=== PATIENT | male | born 1955 | race Caucasian/White ===

== ENCOUNTER 2018-12-07 13:41 | Day surgery (SDC) | payer OTHER, SELFPAY ==
--- NOTE | 2018-12-07 | PATH_ITS ---
[facility] Accession Number: [id number] . 01 Material submitted: . colon - COLON POLYP AT 20 CM . 02 Diagnosis: Biopsy, Colon Polyp at 20 cm: Single polypoid-shaped fragment of colon mucosa associated with prominent mucosal lymphoid aggregate. MRV/12/10/2018 . 02 Electronically signed: . Дмитрий Allen MD, Pathologist NPI- [id number] . 01 Gross description: . COLON POLYP AT 20 CM: Received in formalin are 2 fragment(s) of byers, soft tissue measuring 0.1 x 0.1 x 0.1 cm to 0.4 x 0.2 x 0.2 cm which is entirely submitted and submitted entirely in 1 cassette(s) /DMC /DM . 02 Pathologist provided ICD-10: K63.5 . 02 CPT . 090288 Performed at: 01 [facility] [address] [facility], [place], [place] [id number] MD Benny Peraza MD Phone: [phone] Performed at: 02 [facility] [address] [place], [place] [id number] MD Jazmin Parmar MD Phone: [phone]
[2018-12-07] MEDS: SODIUM CHLORIDE 0.9% 1,000 ML 200 ML IV (13:55)
[2018-12-07 13:58] VITALS: BMI 27.8
[2018-12-07 14:03] VITALS: BP 145/84; PULSE 94; RESP 16; TEMP 36.2; O2SAT 99
--- NOTE | 2018-12-07 14:37 | PM.HP.1 ---
History of Present Illness Date Patient Seen: 12/07/18 Time Patient Seen: 14:41 Chief complaint: [id number] SCREENING COLONOSCOPY Narrative: Patient has history of 1 colonoscopy in the past he thinks he may have had a polyp that was 10 years ago. He is asymptomatic. Patient History Social History household members: spouse Family & Social History Social History: household members spouse Meds Home Medications Medication Instructions Recorded Confirmed Type CA/CU/VIT A/VIT C/VIT E/ZINC 1 tab PO QDAY #0 01/24/13 12/07/18 History (ICAPS AREDS~) carbamazepine 200 mg PO TID 12/07/18 12/07/18 History wxdllvfx-SJY-nmbch-hyaluron ac 1,500 mg PO DAILY 12/07/18 12/07/18 History lisinopril 20 mg PO DAILY 12/07/18 12/07/18 History Allergies Allergy/AdvReac Type Severity Reaction Status Date / Time No Known Allergies Allergy Verified 12/07/18 14:17 Review of Systems Review of Systems All systems reviewed & are unremarkable except as noted in HPI and below Exam Vital Signs (past 8 hours): - 12/07/18 14:03 Temperature 97.1 F L Pulse Rate 94 H Respiratory Rate 16 Blood Pressure 145/84 H Pulse Oximetry 99 Oxygen Delivery Method Room Air Narrative Exam Narrative: Patient is alert and oriented has no complaints vital signs are stable Lungs are clear with no rales or wheezes Heart regular rhythm no murmur Abdomen soft no organomegaly or tenderness Rectal be done at time of colonoscopy Assessment & Plan Assessment & Plan narrative: Patient is here for screening colonoscopy has no questions they went on answered he has had prior colonoscopy and understands
--- NOTE | 2018-12-07 14:42 | P.HP_ITS ---
History of Present Illness Date Patient Seen: 12/07/18 Time Patient Seen: 14:41 Chief complaint: [id number] SCREENING COLONOSCOPY Narrative: Patient has history of 1 colonoscopy in the past he thinks he may have had a polyp that was 10 years ago. He is asymptomatic. Patient History Social History household members: spouse Family & Social History Social History: household members spouse Meds Home Medications Medication Instructions Recorded Confirmed Type CA/CU/VIT A/VIT C/VIT E/ZINC 1 tab PO QDAY #0 01/24/13 12/07/18 History (ICAPS AREDS~) carbamazepine 200 mg PO TID 12/07/18 12/07/18 History ygmixajb-SEK-mfdow-hyaluron ac 1,500 mg PO DAILY 12/07/18 12/07/18 History lisinopril 20 mg PO DAILY 12/07/18 12/07/18 History Allergies Allergy/AdvReac Type Severity Reaction Status Date / Time No Known Allergies Allergy Verified 12/07/18 14:17 Review of Systems Review of Systems All systems reviewed & are unremarkable except as noted in HPI and below Exam Vital Signs (past 8 hours): - 12/07/18 14:03 Temperature 97.1 F L Pulse Rate 94 H Respiratory Rate 16 Blood Pressure 145/84 H Pulse Oximetry 99 Oxygen Delivery Method Room Air Narrative Exam Narrative: Patient is alert and oriented has no complaints vital signs are stable Lungs are clear with no rales or wheezes Heart regular rhythm no murmur Abdomen soft no organomegaly or tenderness Rectal be done at time of colonoscopy Assessment & Plan Assessment & Plan narrative: Patient is here for screening colonoscopy has no questions they went on answered he has had prior colonoscopy and understands
--- NOTE | 2018-12-07 15:15 | PM.OP.ENDO ---
Operative Date/Time/Diagnoses Date of procedure: 12/07/18 Time of procedure: 15:15 Pre-op diagnosis: Screening colonoscopy Post-op diagnosis: other (Very difficult colonoscopy discovered 1 polyp at 20 cm this was removed I could not advance the scope beyond 70 cm just beyond the splenic flexure) Procedure & Clinicians Study performed: Colonoscopy to 70 cm just beyond splenic flexure with polypectomy at 20 cm Same procedure as scheduled: No (Incomplete colonoscopy with polypectomy at 20 cm) Indications: Screening Surgeon: Dave Austin Procedure Notes SCOAP/Timeout: Was done Procedure in detail: Patient was properly identified during surgical pause he was given a total of 7 mg of Versed and 250 micro g of fentanyl throughout the procedure which was aborted at 70 cm. The flexible fiberoptic colonoscope inserted transanally to 70 cm where I simply could not advance the scope without causing undue discomfort. We repositioned the patient several times on his back and on his side none of which aided in advancing the scope beyond 70 cm. Patient had a flat polyp at 20 cm which I did remove and sent for histology. Patient was given copious sedation and the procedure was tolerated satisfactorily. Scope withdrawal time: 10 Sedation minutes: 26 Findings: polyp Impression: Very difficult colonoscopy which was aborted at 70 cm because of excessive required sedation. Future colonoscopy should be done with general anesthesia using propofol. I did remove a polyp at 20 cm if evaluation is warranted at this time barium enema could be considered to look at the right colon. Then if there is suspicion enough a colonoscopy under general anesthesia could be entertained at this time. Recommendations: Colonscopy in 3 years Disposition: PACU
[2018-12-07 15:16] VITALS: BP 121/81; PULSE 82; RESP 18; TEMP 36.4; O2SAT 95
[2018-12-07] MEDS: MIDAZOLAM 5 MG/5 ML VIAL IV (15:17)
[2018-12-07] MEDS: fentaNYL 250 MCG/5 ML INJ IV (15:17)
[2018-12-07 15:21] VITALS: BP 124/87; PULSE 82; RESP 13; O2SAT 96
[2018-12-07 15:26] VITALS: BP 111/73; PULSE 74; RESP 16; O2SAT 96
[2018-12-07 15:50] VITALS: BP 110/71; PULSE 79; RESP 16; O2SAT 96
== END 2018-12-07 15:50 | disposition home or self-care (01) ==
PROVIDERS: PCP Internal Medicine; Visit Provider Surgery
PROC: 0DJD8ZZ Inspection of Lower Intestinal Tract, Via Natural or Artificial Opening Endoscopic (ICD-10-PCS; CPT 45378; principal; 2018-12-07 15:15)
DX: Z12.11 Encounter for screening for malignant neoplasm of colon (principal); K63.5 Polyp of colon
CPT/HCPCS: 45380; 99152; J2250; J3010

== ENCOUNTER → 2019-09-10 17:14 | Outpatient (CLI) | payer OTHER, SELFPAY ==
--- NOTE | 2019-09-10 | DI.RAD.S_ITS ---
PROCEDURE: XR THORACIC SPINE 3V INDICATIONS: MID UPPER BACK, PAIN SINCE LAST SUMMER TECHNIQUE: 3 views of the thoracic spine were acquired. COMPARISON: None. FINDINGS: Bones: No acute fracture. Multilevel degenerative endplate sclerosis and spurring. Diffuse facet arthropathy. Soft tissues: No paravertebral stripe thickening. IMPRESSION: Diffuse spondylitic changes. No fracture Dictated by: Kory Correia M.D. on 09/11/2019 at 12:20 Approved by: Kory Correia M.D. on 09/11/2019 at 12:22
== END ==
PROVIDERS: PCP Internal Medicine; Referring Provider Physician Assistant Medical; Visit Provider Physician Assistant Medical
DX: M54.6 Pain in thoracic spine (principal); M47.814 Spondylosis without myelopathy or radiculopathy, thoracic region
CPT/HCPCS: 72072

== ENCOUNTER → 2019-10-21 16:53 | Outpatient (CLI) | payer OTHER, SELFPAY ==
--- NOTE | 2019-10-21 | DI.US.S_ITS ---
PROCEDURE: US SOFT TISSUE HEAD AND NECK INDICATIONS: CERVICAL LYMPHADENOPATHY TECHNIQUE: Real-time scanning was performed of the neck region of interest, with image documentation. COMPARISON: [facility], , MR THORACIC SPINE WO CON, 10/21/2019, 17:01. [facility], [place], PET/CT SKULL BASE TO MID THIGH, 10/21/2016, 9:08. FINDINGS: The disc height clinical concern, there is a 1.6 x 1.2 x 1.7 cm hypoechoic nodule seen, which demonstrates increased vascularity and irregularity. IMPRESSION: There is a hypervascular mass seen at the area of clinical concern. Given the patient's prior history of melanoma and the accompanying thoracic MRI findings, this is highly worrisome for metastatic disease, most likely representing an enlarged, pathologic lymph node. If clinically appropriate, these consider a dedicated ultrasound guided percutaneous biopsy. Dictated by: Eagle Lui M.D. on 10/21/2019 at 17:00 Approved by: Eagle Lui M.D. on 10/21/2019 at 17:02
--- NOTE | 2019-10-21 | DI.MRI.S_ITS ---
PROCEDURE: MR THORACIC SPINE WO CON INDICATIONS: Pain in thoracic spine; Cervical Lymphadenopathy TECHNIQUE: Noncontrast sagittal T1 spine echo and T2 fast spin echo, sagittal STIR, axial T1 and T2 fast spin echo through the thoracic spine. COMPARISON: [facility], , XR THORACIC SPINE 3V, 09/10/2019, 17:29. [facility], [place], PET/CT SKULL BASE TO MID THIGH, 10/21/2016, 9:08. FINDINGS: Image quality: Excellent. Alignment and Curvature: There is normal bony alignment. Bone Marrow: Within the T4 vertebral body, there is a mass seen, which partially destroys the vertebral body, with 30-40% loss of height centrally. There is loss of the normal T1 and T2 weighted signal with increased abnormal STIR signal. There is a soft tissue component seen growing posteriorly into the spinal canal on the left, as seen on series 6 image 8 and on series 7 image 14. The soft tissue component measures at least 3.6 cm craniocaudal. There is associated severe central canal narrowing. There is involvement of the posterior elements on the left. There is an additional 1.6 cm lesion seen involving the T10 vertebral body anteriorly, with no significant associated fracture. There is loss of the normal T1 and T2 signal, with mild increased STIR signal. Within the T1 vertebral body, there is a stippled focus seen which is slightly increased in signal on T1-weighted images and increased and T2 images, with minimal increased signal on STIR imaging. Differential diagnosis includes an additional metastatic lesion versus an atypical vertebral body hemangioma. Spinal Cord: Visualized spinal cord is normal in size and signal. Paraspinous Soft Tissues: There is a mass seen within the right lower lobe measuring 3.3 cm, as on series 7 image 22. Miscellaneous: There is severe central canal narrowing seen at the T4 level. At the T8-T9 level, there is a central disc protrusion seen, with moderate central canal narrowing. Moderate bilateral neural foraminal narrowing is seen, left worse than right. At the T9-T10 level, there is a central disc protrusion seen. Moderate central canal narrowing and moderate bilateral neural foraminal narrowing can be seen. At the T10-T11 level, there is a mild to moderate disc bulge seen, with moderate central canal narrowing and moderate bilateral neural foraminal narrowing. At the T11-T12 level, there is a moderate disc bulge seen, which is eccentric to the right side. There is at least moderate central canal narrowing. There is at least moderate right-sided neural foraminal narrowing and mild to moderate left-sided neural foraminal narrowing. At L1-L2, there is moderate disc bulge seen, with moderate central canal narrowing and moderate bilateral neural narrowing. A Schmorl's node can be seen at the inferior endplate of L1. IMPRESSION: Aggressive metastatic disease until proven otherwise, which is most prominent at the T4 level, where there is partial vertebral body destruction and a prominent soft tissue component, which causes severe central canal narrowing. (It is noted that this patient has a known history of prior melanoma.) An additional similar-appearing mild lesion can be seen at the T10 level, which is also suspicious for metastatic disease. Within the T1 vertebral body, there is an additional metastatic lesion versus an atypical vertebral body hemangioma. Note is made of a right lower lobe mass. Numerous levels of degenerative change are seen. Note: Attempts were made to contact the ordering provider, yet the after hours number was nonfunctional. Dictated by: Eagle Lui M.D. on 10/21/2019 at 16:45 Approved by: Eagle Lui M.D. on 10/21/2019 at 16:58
--- NOTE | 2019-10-22 17:48 | PC.NURSE ---
recieved a call from pt, inquiring mri result, referred to dr rojas.
== END ==
PROVIDERS: PCP Internal Medicine; Referring Provider Physician Assistant Medical; Visit Provider Physician Assistant Medical
DX: M54.6 Pain in thoracic spine (principal); R59.0 Localized enlarged lymph nodes; C43.9 Malignant melanoma of skin, unspecified; C79.51 Secondary malignant neoplasm of bone; R91.8 Other nonspecific abnormal finding of lung field; M47.816 Spondylosis without myelopathy or radiculopathy, lumbar region
CPT/HCPCS: 72146; 76536

== ENCOUNTER 2019-10-22 19:20 | Emergency (ER) | payer OTHER, SELFPAY ==
[2019-10-22 19:25] VITALS: BP 197/104; PULSE 98; RESP 18; TEMP 36.9; O2SAT 97; BMI 15.3
--- NOTE | 2019-10-22 20:16 | ED.BACK ---
HPI - Back Pain/Injury General Chief Complaint: Back Pain/Injury Stated Complaint: Back pain/ trouble walking Time Seen by Provider: 10/22/19 19:48 Source: patient Mode of arrival: Ambulatory Limitations: no limitations History of Present Illness HPI Narrative: Patient is a 64-year-old male. Approximately 15 years ago had a melanoma excised from his right lower extremity with lymph node excisions at that time. Approximately 4 years ago had what he states is a recurrence of melanoma. Have this area excised as well. Does see Dr. Yeh with oncology at [facility] however has not seen him in several years since his last incident with the melanoma. Since last summer has had mid back pain. There was no trauma. Was treated with anti-inflammatories and steroids. Had minimal if any improvement with this. Symptoms worsening since then until 4-6 weeks ago when the symptoms progressed. Talked with his primary provider who ordered an MRI of his thoracic spine. This was delayed secondary to approval from his insurance company who initially denied the referral. This MRI was performed yesterday. He also had a soft tissue ultrasound of a lump on his right neck that appeared approximately 6 weeks ago as well. This was done yesterday and was also ordered by his primary provider. Is on pain medication provided by his primary provider. He states that for the past several weeks he has noticed increasing pain in his upper back. He stated that he was having balance issues in his lower extremities. He does not describe any weakness. He states that he can walk fine however has to use a cane secondary to the balance issues. Denies any headaches or vision changes. No chest pain. No upper extremity symptoms. No urinary symptoms or bowel symptoms. He contacted the emergency department today looking for the results of his MRI even though they were not ordered on the emergency department. He states that he attempted to call his primary doctor and left messages but no one contacted him back. He was just looking for the results of his studies. The emergency provider on during the day talk with him in did give him the results of his MRI. Over the phone he stated that he was having increasing pain and weakness in his lower extremities so she informed him that he should come to the emergency department for evaluation. That is why he came in this evening. Related Data Home Medications Medication Instructions Recorded Confirmed CA/CU/VIT A/VIT C/VIT E/ZINC 1 tab PO QDAY #0 01/24/13 04/25/19 (ICAPS AREDS~) carbamazepine 200 mg PO TID 12/07/18 04/25/19 fsppxlth-BUS-ixwol-hyaluron ac 1,500 mg PO DAILY 12/07/18 04/25/19 lisinopril 20 mg PO DAILY 12/07/18 04/25/19 Allergies Allergy/AdvReac Type Severity Reaction Status Date / Time No Known Allergies Allergy Verified 04/25/19 11:40 Review of Systems Constitutional Constitutional: Denies fever(s), Denies frequent falls, Denies headache(s) and Denies weakness Eyes Eyes: Denies change in vision ENT Ears, Nose, Mouth, and Throat: Denies vertigo, Denies dizziness, Denies headache(s), Reports disequilibrium, Denies sinus pressure and Denies sore throat Comments: Swelling right side of neck Cardiovascular Cardiovascular: Denies chest pain, Denies dyspnea and Denies dyspnea on exertion Respiratory Respiratory: Denies dyspnea and Denies dyspnea on exertion Gastrointestinal Gastrointestinal: Denies abdominal pain, Denies nausea and Denies vomiting Genitourinary Genitourinary: Denies dysuria, Denies flank pain, Reports urinary frequency and Denies urinary hesitancy Musculoskeletal Musculoskeletal: Denies myalgias, Denies arthralgias, Denies muscle weakness and Reports numbness (Bilateral feet) Integumentary/Breasts Skin/Breast: Denies lesions and Denies rash Neurologic Neurologic: Denies behavioral changes, Denies burning sensations, Denies confusion, Denies vertigo, Denies dizziness, Denies frequent falls, Denies headache(s), Reports lack of coordination, Denies memory loss, Reports numbness (Bilateral feet), Denies radicular pain, Reports disequilibrium and Denies weakness Psychiatric Psychiatric: Denies behavioral changes, Denies confusion and Denies memory loss Hematologic/Lymphatic Hematologic/Lymphatic: Denies easy bleeding and Denies easy bruising Allergic/Immunologic Allergic/Immunologic: Denies urticaria Patient History Medical History (Updated 10/22/19 @ 22:01 by Ap Rosas DO) Hypertension (Acute) Melanoma (Acute) Social History household members: spouse Smoking Status: Never smoker Smoking Status: Never smoker Substance Use Type: does not use Exam Initial Vital Signs Initial Vital Signs: Vital Signs Temperature 98.4 F 10/22/19 19:25 Pulse Rate 98 H 10/22/19 19:25 Respiratory Rate 18 10/22/19 19:25 Blood Pressure 197/104 H 10/22/19 19:25 Pulse Oximetry 97 10/22/19 19:25 Const General: cooperative, comfortable, well developed and well groomed Limitations: mental status not altered HENMT Head: normal to inspection and normocephalic Eyes General: appearance normal, both eyes and all related structures Resp Effort & Inspection: normal respiratory effort Cardio Rate: regular rate Skin Other: Well-healed surgical scars right lower extremity consistent with his prior history of melanoma excisions. Has a large freely movable mass right-sided neck Neuro General: alert, awake and oriented x3 Cognition: normal cognition Speech: speech normal Gait: normal gait (However uses a cane) Motor: muscle tone normal throughout Extrem General: normal to inspection Psych Appearance: grossly normal and well kempt Course Vital Signs Vital signs: Vital Signs - 8 hr 10/22/19 19:25 10/22/19 21:06 Temperature 98.4 F Pulse Rate 98 H Respiratory Rate 18 Blood Pressure 197/104 H Blood Pressure [Left Arm] 159/84 H Pulse Oximetry 97 MDM - Back Pain/Injury Imaging Data Soft tissue ultrasound: Radiologist's Impression: [address] [address] Ultrasound Report Signed Patient: Blake Cuadra [facility]#: [id number] : 6Acct:[id number] Age/Sex: 64 / MDate of Service: 10/21/19 Loc: MRI Accession Number: [id number] Procedure: US soft tissue head and neck Ordering Provider: Amena Hogan PROCEDURE: US SOFT TISSUE HEAD AND NECK INDICATIONS: CERVICAL LYMPHADENOPATHY TECHNIQUE: Real-time scanning was performed of the neck region of interest, with image documentation. COMPARISON: [facility], , MR THORACIC SPINE WO CON, 10/21/2019, 17:01. [facility], [place], PET/CT SKULL BASE TO MID THIGH, 10/21/2016, 9:08. FINDINGS: The disc height clinical concern, there is a 1.6 x 1.2 x 1.7 cm hypoechoic nodule seen, which demonstrates increased vascularity and irregularity. IMPRESSION: There is a hypervascular mass seen at the area of clinical concern. Given the patient's prior history of melanoma and the accompanying thoracic MRI findings, this is highly worrisome for metastatic disease, most likely representing an enlarged, pathologic lymph node. If clinically appropriate, these consider a dedicated ultrasound guided percutaneous biopsy. Dictated by: Eagle Lui M.D. on 10/21/2019 at 17:00 Approved by: Eagle Lui M.D. on 10/21/2019 at 17:02 Thoracic spine MRI: Radiologist's Impression: [address] [address] Magnetic Resonance Report Signed Patient: Blake Cuadra DMR#: [id number] : 6Acct:[id number] Age/Sex: 64 / MDate of Service: 10/21/19 Loc: MRI Accession Number: [id number] Procedure: MR thoracic spine wo con Ordering Provider: Amena Hogan PROCEDURE: MR THORACIC SPINE WO CON INDICATIONS: Pain in thoracic spine; Cervical Lymphadenopathy TECHNIQUE: Noncontrast sagittal T1 spine echo and T2 fast spin echo, sagittal STIR, axial T1 and T2 fast spin echo through the thoracic spine. COMPARISON: [facility], , XR THORACIC SPINE 3V, 09/10/2019, 17:29. [facility], [place], PET/CT SKULL BASE TO MID THIGH, 10/21/2016, 9:08. FINDINGS: Image quality: Excellent. Alignment and Curvature: There is normal bony alignment. Bone Marrow: Within the T4 vertebral body, there is a mass seen, which partially destroys the vertebral body, with 30-40% loss of height centrally. There is loss of the normal T1 and T2 weighted signal with increased abnormal STIR signal. There is a soft tissue component seen growing posteriorly into the spinal canal on the left, as seen on series 6 image 8 and on series 7 image 14. The soft tissue component measures at least 3.6 cm craniocaudal. There is associated severe central canal narrowing. There is involvement of the posterior elements on the left. There is an additional 1.6 cm lesion seen involving the T10 vertebral body anteriorly, with no significant associated fracture. There is loss of the normal T1 and T2 signal, with mild increased STIR signal. Within the T1 vertebral body, there is a stippled focus seen which is slightly increased in signal on T1-weighted images and increased and T2 images, with minimal increased signal on STIR imaging. Differential diagnosis includes an additional metastatic lesion versus an atypical vertebral body hemangioma. Spinal Cord: Visualized spinal cord is normal in size and signal. Paraspinous Soft Tissues: There is a mass seen within the right lower lobe measuring 3.3 cm, as on series 7 image 22. Miscellaneous: There is severe central canal narrowing seen at the T4 level. At the T8-T9 level, there is a central disc protrusion seen, with moderate central canal narrowing. Moderate bilateral neural foraminal narrowing is seen, left worse than right. At the T9-T10 level, there is a central disc protrusion seen. Moderate central canal narrowing and moderate bilateral neural foraminal narrowing can be seen. At the T10-T11 level, there is a mild to moderate disc bulge seen, with moderate central canal narrowing and moderate bilateral neural foraminal narrowing. At the T11-T12 level, there is a moderate disc bulge seen, which is eccentric to the right side. There is at least moderate central canal narrowing. There is at least moderate right-sided neural foraminal narrowing and mild to moderate left-sided neural foraminal narrowing. At L1-L2, there is moderate disc bulge seen, with moderate central canal narrowing and moderate bilateral neural narrowing. A Schmorl's node can be seen at the inferior endplate of L1. IMPRESSION: Aggressive metastatic disease until proven otherwise, which is most prominent at the T4 level, where there is partial vertebral body destruction and a prominent soft tissue component, which causes severe central canal narrowing. (It is noted that this patient has a known history of prior melanoma.) An additional similar-appearing mild lesion can be seen at the T10 level, which is also suspicious for metastatic disease. Within the T1 vertebral body, there is an additional metastatic lesion versus an atypical vertebral body hemangioma. Note is made of a right lower lobe mass. Numerous levels of degenerative change are seen. Note: Attempts were made to contact the ordering provider, yet the after hours number was nonfunctional. Dictated by: Eagle Lui M.D. on 10/21/2019 at 16:45 Approved by: Eagle Lui M.D. on 10/21/2019 at 16:58 Thoracic spine x-ray: Radiologist's Impression: [address] [address] XRay Report Signed Patient: Blake Cuadra DMR#: [id number] : 6Acct:[id number] Age/Sex: 64 / MDate of Service: 09/10/19 Loc: [facility] Accession Number: [id number] Procedure: XR thoracic spine 3V Ordering Provider: Amena Hogan PROCEDURE: XR THORACIC SPINE 3V INDICATIONS: MID UPPER BACK, PAIN SINCE LAST SUMMER TECHNIQUE: 3 views of the thoracic spine were acquired. COMPARISON: None. FINDINGS: Bones: No acute fracture. Multilevel degenerative endplate sclerosis and spurring. Diffuse facet arthropathy. Soft tissues: No paravertebral stripe thickening. IMPRESSION: Diffuse spondylitic changes. No fracture Dictated by: Kory Correia M.D. on 09/11/2019 at 12:20 Approved by: Kory Correia M.D. on 09/11/2019 at 12:2 MDM Narrative Medical decision making narrative: The radiologic studies included in this note are for reference purposes only. They were not ordered out of the emergency department in not ordered during this emergency department visit. Patient's symptoms today are not new today they have just been worsening over the past several weeks. We were unable to get in touch with his primary provider. I did discuss the case with Dr. mccarthy with Spine/Neurosurgery at [facility] who reviewed the images he stated that the patient should be transferred for surgical intervention. Patient has no symptoms consistent with COVID-19. Feel the patient is stable for transport. Is stable to go by private vehicle. I did discuss the MRI findings with him and the concerns that we saw on the MRI findings. He expressed understanding and agreement. Discharge Plan Departure Patient Disposition: [facility] Clinical Impression: Thoracic spine tumor Activity Restrictions/Additional Instructions: I discussed your case with Dr. Eddie Mccarthy with the Spine/Neurosurgery Service at [facility]. They recommended that you go to the [facility] Emergency Department this evening to be further evaluated. I would anticipate being admitted to the hospital. Prescriptions: No Action CA/CU/VIT A/VIT C/VIT E/ZINC (ICAPS AREDS~) 1 tab PO QDAY Qty: 0 RF: 0 lisinopril 20 mg Tablet 20 mg PO DAILY RF: 0 nwvibfns-EDG-uxwer-hyaluron ac 1,500 mg PO DAILY RF: 0 carbamazepine 200 MG tablet 200 mg PO TID RF: 0 Referrals: Abdifatah May MD [Primary Care Provider] -
[2019-10-22 21:06] VITALS: BP 159/84
[2019-10-22 22:00] VITALS: BP 166/86; PULSE 79; RESP 18; TEMP 36.8; O2SAT 99
== END 2019-10-22 22:06 | disposition short-term general hospital (02) ==
PROVIDERS: Emergency Provider Emergency Medicine; PCP Internal Medicine
DX: D49.2 Neoplasm of unspecified behavior of bone, soft tissue, and skin (principal); R59.1 Generalized enlarged lymph nodes; Z85.820 Personal history of malignant melanoma of skin
CPT/HCPCS: 99283

== ENCOUNTER → 2019-11-23 14:05 | Outpatient (CLI) | payer OTHER, SELFPAY ==
[2019-11-24 08:26] LABS: COVID19 Sendout Not Detected (Not Detect)
== END ==
PROVIDERS: PCP Internal Medicine; Visit Provider Physician Assistant
DX: Z01.818 Encounter for other preprocedural examination (principal)
CPT/HCPCS: 87635

== ENCOUNTER 2019-12-09 14:35 | Emergency (ER) | payer OTHER, SELFPAY ==
[2019-12-09 14:44] VITALS: BP 138/78; PULSE 97; RESP 16; TEMP 37.5; O2SAT 98; BMI 27.3
--- NOTE | 2019-12-09 14:55 | DI.RAD.S_ITS ---
PROCEDURE: XR CHEST 2V INDICATIONS: fever, neutropenic TECHNIQUE: 2 views of the chest were acquired. COMPARISON: [facility], , MR THORACIC SPINE WO CON, 10/21/2019, 17:01. [facility], [place], PET/CT SKULL BASE TO MID THIGH, 10/21/2016, 9:08. [facility], , US SOFT TISSUE HEAD AND NECK, 10/21/2019, 17:31. FINDINGS: Surgical changes and devices: None. Lungs and pleura: Lungs are abnormal with a lung mass overlying the right hilar area, previously also identified on MR scanning 10/21/19. This is located posteriorly superimposed on the spine, from the MR scanning and measures approximately 4.2 cm the size on prior MR scanning was approximately 3.3 cm. No pleural effusions or pneumothorax. Mediastinum: Mediastinal contours are normal. Heart size is normal. Bones and chest wall: No suspicious bony abnormalities. Soft tissues appear unremarkable. Spine stabilization surgery has been performed in this patient with documented spinal osseous metastatic disease. IMPRESSION: A source of neutropenic fever is not found. The mass lesion at the posterior right medial lung superimposed on the lower half of the right hilum appears to be mildly enlarged from prior MR scanning in October of this year. Interval spine stabilization surgery crossing the cervical thoracic junction. No pneumonia found. Dictated by: Alon Cabrera M.D. on 12/09/2019 at 15:44 Approved by: Alon Cabrera M.D. on 12/09/2019 at 15:48
[2019-12-09] MEDS: SODIUM CHLORIDE 0.9% 1,000 ML 125 ML IV (15:35)
[2019-12-09 15:39] LABS: Add Manual Diff / Slide Review NO; Basophils Absolute Auto 0 /uL (0-100); Basophils Percent Auto 0.3 % (0-2); Eosinophils Absolute Auto 0 /uL (0-450); Eosinophils Percent Auto 0.6 % (2-4); Hematocrit 37.8 % (41-53); Hemoglobin 12.6 g/dL (13.5-17.5); Lymphocytes Absolute Auto 400 /uL (1100-4500); Lymphocytes Percent Auto 11.4 % (25-40); Mean Corpuscular HGB Conc 33.4 % (30-36); Mean Corpuscular Hemoglobin 26.8 PG (26-34); Mean Corpuscular Volume 80.2 fL (80-100); Monocytes Absolute Auto 400 /uL (0-900); Neutrophils Absolute Auto 2300 /uL (1500-7000); Neutrophils Percent Auto 73.7 % (50-75); Platelet Count 99 X10^3/uL (150-400); Red Blood Cell Count 4.72 X10^6/uL (4.5-5.9); Red Cell Distribution Width 16.3 % (11.6-14.8); White Blood Cell Count 3.1 X10^3/uL (4.5-11.0)
[2019-12-09] MEDS: CEFEPIME 2 GM in SODIUM CHLORIDE 0.9% 100 ML 200 ML IV (15:47)
[2019-12-09 15:55] LABS: Alanine Aminotransferase 26 IU/L (<50); Albumin 3.6 g/dL (3.5-5.0); Albumin Globulin Ratio 1.2 (1.0-2.8); Alkaline Phosphatase 84 U/L (38-126); Aspartate Aminotransferase 35 IU/L (17-59); BUN Creatinine Ratio 16.1 (6-22); Bilirubin Total 0.5 mg/dL (0.2-1.3); Blood Urea Nitrogen 15 mg/dL (9-20); Carbon Dioxide 29 mmol/L (22-32); Chloride 95 mmol/L (98-107); Estimated Glomerular Filt Rate > 60.0 mL/min (>60); Globulin 2.9 g/dL (1.7-4.1); Glucose 126 mg/dL (80-110); HEMOLYSIS < 15 (0-50); Potassium 4.5 mmol/L (3.4-5.1); Sodium 131 mmol/L (137-145); Total Protein 6.5 g/dL (6.3-8.2)
[2019-12-09 15:56] LABS: Lactate (Lactic Acid) 1.3 mmol/L (0.7-2.1)
[2019-12-09 16:12] LABS: Procalcitonin 0.82 ng/mL (<0.5)
[2019-12-09 16:35] VITALS: BP 141/71; PULSE 86; RESP 25; O2SAT 98
--- NOTE | 2019-12-09 16:55 | ED_ITS ---
HPI - Fever <MARY Israel - Last Filed: 12/09/19 23:12> General Chief Complaint: Fever Stated Complaint: fever chills nausea Time Seen by Provider: 12/09/19 14:42 Source: patient and family Mode of arrival: Wheelchair Limitations: no limitations History of Present Illness HPI Narrative: This is a 64-year-old male, nonsmoker, who presents to ED with significant other with chief complain of fever and patient is receiving immunotherapy and had last dose of radiation therapy for cancer. T-max at home was 102.5 the following day patient received immunotherapy. Patient has been t aking Tylenol with some improvement in fever and decreased to 99-101. Patient has primary cancer as melanoma with metastasis on lung, thoracic spine (T1-T6), and lymph nodes, right side head/scalp. Patient is receiving cancer treatment through [facility] and sees Dr. Sesar Yeh and was referred to emergency room when spouse contacted the office. Spouse reports patient has nausea, fatigue, pale in the face, decreased appetite and p.o. intake. Patient had several loose stools last night after taking Senokot. There is also lesions found in kidney and liver according to spouse. Patient denies chest pain, breathing difficulty, short of breath. Last cold with swab was done 2.5 week ago. Immuno therapy started last week (T-4) and completed radiation therapy on spine 1 week ago. Patient denies changes in urinary symptoms except occasional urgency or abdominal pain. Last Tylenol was taken at 8:30 a.m. this morning. Related Data Home Medications Medication Instructions Recorded Confirmed CA/CU/VIT A/VIT C/VIT E/ZINC 1 tab PO QDAY #0 01/24/13 04/25/19 (ICAPS AREDS~) carbamazepine 200 mg PO TID 12/07/18 04/25/19 youjucwn-KGQ-rswih-hyaluron ac 1,500 mg PO DAILY 12/07/18 04/25/19 lisinopril 20 mg PO DAILY 12/07/18 04/25/19 amlodipine 5 mg PO 12/09/19 atorvastatin 40 mg PO DAILY 12/09/19 12/09/19 carbamazepine 200 mg PO TID 12/09/19 12/09/19 gabapentin 400 mg PO DAILY 12/09/19 12/09/19 Allergies Allergy/AdvReac Type Severity Reaction Status Date / Time No Known Allergies Allergy Verified 12/09/19 14:47 Review of Systems <MARY Israel - Last Filed: 12/09/19 23:12> Review of Systems Narrative: General: See HPI HEENT: Denies sinus pain, ear pain, sore throat, difficulty swallowing, dizziness. Respiratory: Denies dyspnea, cough, wheezing, hemoptysis, sputum. Cardiovascular: Denies chest pain, palpitations, orthopnea, edema. Gastrointestinal: Denies nausea, vomiting, abdominal pain, diarrhea, con stipation, melena. Had several loose stool last night without blood. : Denies dysuria, frequency, incontinence, hematuria, urinary retention. Reports occasional urinary urgency. Musculoskeletal: Denies weakness, joint pain or bony pain. Skin: Denies rash, skin lesions, or other. Neurologic: Denies weakness, headache, numbness, change in speech, confusion, seizures, incoordination. Patient History <MARY Israel - Last Filed: 12/09/19 23:12> Medical History (Updated 12/09/19 @ 19:22 by MARY Israel) Cancer of spine (Acute) Hypertension (Acute) Kidney lesion (Acute) Liver lesion (Acute) Melanoma (Acute) Surgical History (Updated 12/09/19 @ 17:28 by MARY Israel) H/O Spinal surgery (Acute) Social History household members: spouse Smoking Status: Never smoker Smoking Status: Never smoker Substance Use Type: does not use Exam <MARY Israel - Last Filed: 12/09/19 23:12> Narrative Exam Narrative: GEN: Alert, oriented x 3, well nourished. No acute distress but noted tachypnea during initial encounter rate in 36/min. Head: Normal cephalic, atraumatic. No scalp or temporal tenderness. A palpable mass in left temporal lobe. EYES: Pupils are equal, round, and reactive to light and accommodation. Extraocular muscles are intact bilaterally. There is no subconjunctival hemorrhage, exudate and sclera non-icteric. ENT: Bilateral auditory canals and tympanic membranes clear. Hearing grossly intact. Nose without bleeding, purulent discharge or deviation. Facial sinuses nontender to palpate. Mucous membrane moist, no mucosal lesion. Throat without erythema, tonsillar hypertrophy or exudate. Uvula in midline, airway patent. Neck: Trachea in midline. No JVD, A palpable lymph nodes about 3-4 cm in size in right neck. No thyroid megaly. Supple, non-tender and no meningeal signs. CARDIAC: Normal regular rate and rhythm without murmurs, gallops, or rubs. No chest wall tenderness. Mild right leg edema without cyanosis or pallor. Capillary refill is less than 2 seconds. RESPIRATORY: Lungs are clear to auscultate bilaterally. No cough, wheezes, rale s, or rhonchi. No stridor, respiratory distress, increase work of breathing, or accessary muscle used. Noted tachypnea but O2 sat in room air at 97%. ABD: Abdomen soft, nontender and non-distended. No guarding or rebound tenderness to palpate. Bowel sounds are normal in all 4 quadrants. There is no palpable masses or organomegaly. EXT: Full painless ROM of all extremities with no loss of sensation, strength, effusion or edema. Left axilla palpable lesion in approx. 2 cm in size. SKIN: Warm, dry, normal color for patient. BACK: Nontender without deformity or crepitance. No flank tenderness. NEUROLOGICAL: Alert and oriented to place, time and person. Sensation and motor function intact bilaterally. No facial droops, dysphasia. PSYCHIATRIC: Good judgement and reason, without hallucinations or abnormal behaviors during the examination. Flat affect. Patient is not suicidal. Initial Vital Signs Initial Vital Signs: Vital Signs Temperature 99.5 F 12/09/19 14:44 Pulse Rate 97 H 12/09/19 14:44 Respiratory Rate 16 12/09/19 14:44 Blood Pressure 138/78 12/09/19 14:44 Pulse Oximetry 98 12/09/19 14:44 <Ap Rosas DO - Last Filed: 12/10/19 08:10> Initial Vital Signs Initial Vital Signs: Vital Signs Temperature 99.5 F 12/09/19 14:44 Pulse Rate 97 H 12/09/19 14:44 Respiratory Rate 16 12/09/19 14:44 Blood Pressure 138/78 12/09/19 14:44 Pulse Oximetry 98 12/09/19 14:44 Scores <Royce [facility] Last Filed: 12/09/19 23:12> GCS Luz Elena coma scale eye opening: Spontaneous [place] coma scale verbal response: Orientated [place] coma scale motor response: Obey commands [place] coma scale total score: 15 PERC Score Age greater than or equal to 50 years: Yes Heart rate greater than or equal to 100 bpm: No Room Air O2 Sat less than 95%: No Unilateral leg swelling: No Recent trauma or surgery: Yes Hemoptysis: No Prior PE or DVT: No Hormone Use: No Total PERC Score: 2 Wells' Criteria for PE Clinical signs and symptoms of DVT: No PE is #1 Dx or equally likely: No Heart rate > 100: No Immobilization at least 3 days or surg in previous 4 weeks: Yes History of PE or DVT: No Hemoptysis: No Malignancy w/Treatment within 6 months or palliative: Yes Wells' PE Score total: 2.5 Course <[facility] Filed: 12/09/19 23:12> Orders Ordered: Discontinued Medications Cefepime HCl 2 gm/ Sodium (Chloride) 100 mls @ 200 mls/hr IV NOW ONE Stop: 12/09/19 14:56 Last Infusion: 12/09/19 16:20 Dose: 0 mls/hr Documented by: Admin: 12/09/19 15:47 Dose: 200 mls/hr Documented by: DEANDRE Sodium Chloride (Normal Saline 0.9%) 1,000 mls @ 125 mls/hr IV CONT RENATA Last Infusion: 12/09/19 18:22 Dose: 0 mls/hr Documented by: Infusion: 12/09/19 17:27 Dose: 999 mls/hr Documented by: Admin: 12/09/19 15:35 Dose: 125 mls/hr Documented by: DEANDRE Ondansetron HCl (Zofran) 4 mg IV NOW ONE Stop: 12/09/19 15:29 Last Admin: 12/09/19 16:34 Dose: Not Given Documented by: DEANDRE Ondansetron HCl (Zofran) 4 mg IV NOW ONE Stop: 12/09/19 16:51 Last Admin: 12/09/19 17:15 Dose: 4 mg Documented by: DEANDRE Consultations Consultation #1: Dr. Sesar Yeh, oncologist at [facility] with physical findings, VS, lab tests and treatments given in ED. Dr. Yeh advised to hydrate patient well and to follow up with clinic tomorrow with a phone call. Advised to use Tylenol 650 mg Q4-6 hr prn for fever. He kindly gave his cell phone number to share with the patient. Time: 17:20 Consultation #2: Dr. Yeh call back shortly after the first discussing over the phone. No further imaging test was advised since patient has good O2 room saturation w/o pleuritic chest pain, or short of breath with improved tachypnea. Patient's spouse contributed tachypnea to feeling tired or stressed. Time: 17:30 Vital Signs Vital signs: Vital Signs - 8 hr 12/09/19 14:44 12/09/19 16:35 12/09/19 17:00 Temperature 99.5 F Pulse Rate 97 H 86 86 Respiratory Rate 16 25 H 17 Blood Pressure 138/78 Blood Pressure [Left Arm] 141/71 H 134/72 Pulse Oximetry 98 98 96 12/09/19 17:30 12/09/19 18:54 Temperature Pulse Rate 86 90 Respiratory Rate 26 H 22 Blood Pressure Blood Pressure [Left Arm] 143/73 H 136/75 Pulse Oximetry 96 94 <Ap Rosas, DO - Last Filed: 12/10/19 08:10> Orders Ordered: Discontinued Medications Cefepime HCl 2 gm/ Sodium (Chloride) 100 mls @ 200 mls/hr IV NOW ONE Stop: 12/09/19 14:56 Last Infusion: 12/09/19 16:20 Dose: 0 mls/hr Documented by: Admin: 12/09/19 15:47 Dose: 200 mls/hr Documented by: DEANDRE Sodium Chloride (Normal Saline 0.9%) 1,000 mls @ 125 mls/hr IV CONT RENATA Last Infusion: 12/09/19 18:22 Dose: 0 mls/hr Documented by: Infusion: 12/09/19 17:27 Dose: 999 mls/hr Documented by: Admin: 12/09/19 15:35 Dose: 125 mls/hr Documented by: DEANDRE Ondansetron HCl (Zofran) 4 mg IV NOW ONE Stop: 12/09/19 15:29 Last Admin: 12/09/19 16:34 Dose: Not Given Documented by: DEANDRE Ondansetron HCl (Zofran) 4 mg IV NOW ONE Stop: 12/09/19 16:51 Last Admin: 12/09/19 17:15 Dose: 4 mg Documented by: DEANDRE Vital Signs Vital signs: Vital Signs - 8 hr 12/09/19 14:44 12/09/19 16:35 12/09/19 17:00 Temperature 99.5 F Pulse Rate 97 H 86 86 Respiratory Rate 16 25 H 17 Blood Pressure 138/78 Blood Pressure [Left Arm] 141/71 H 134/72 Pulse Oximetry 98 98 96 12/09/19 17:30 12/09/19 18:54 Temperature Pulse Rate 86 90 Respiratory Rate 26 H 22 Blood Pressure Blood Pressure [Left Arm] 143/73 H 136/75 Pulse Oximetry 96 94 MDM - Fever <Royce MARY Louis - Last Filed: 12/09/19 23:12> Differential Diagnosis Differential diagnosis: Likely fever of unknown origin, viral infection, sepsis and other (Neutropenic) Medical Records Attestation: I reviewed the patient's medical records. Lab Data Attestation: I reviewed the patient's lab results. Result diagrams: 12/09/19 15:20 12/09/19 15:20 Labs: Lab Results 12/09/19 12/09/19 12/09/19 Range/Units 15:20 15:20 15:20 WBC 3.1 L (4.5-11.0) X10^3/uL RBC 4.72 (4.5-5.9) X10^6/uL Hgb 12.6 L (13.5-17.5) g/dL Hct 37.8 L (41-53) % MCV 80.2 (80-100) fL MCH 26.8 (26-34) PG MCHC 33.4 (30-36) % RDW 16.3 H (11.6-14.8) % Plt Count 99 L (150-400) X10^3/uL Neut % (Auto) 73.7 (50-75) % Lymph % (Auto) 11.4 L (25-40) % [place] % (Auto) 14.0 (3-14) % Eos % (Auto) 0.6 L (2-4) % Baso % (Auto) 0.3 (0-2) % Neut # (Auto) 2300 (9159-8355) /uL Lymph # (Auto) 400 L (0808-7668) /uL [place] # (Auto) 400 (0-900) /uL Eos # (Auto) 0 (0-450) /uL Baso # (Auto) 0 (0-100) /uL Sodium 131 L (137-145) mmol/L Potassium 4.5 (3.4-5.1) mmol/L Chloride 95 L (98-107) mmol/L Carbon Dioxide 29 (22-32) mmol/L BUN 15 (9-20) mg/dL Creatinine 0.93 (0.66-1.25) mg/dL Estimated GFR > 60.0 (>60) mL/min BUN/Creatinine Ratio 16.1 (6-22) Glucose 126 H (80-110) mg/dL Lactate (0.7-2.1) mmol/L Calcium 9.0 (8.4-10.2) mg/dL Total Bilirubin 0.5 (0.2-1.3) mg/dL AST 35 (17-59) IU/L ALT 26 (<50) IU/L Alkaline Phosphatase 84 (38-126) U/L Total Protein 6.5 (6.3-8.2) g/dL Albumin 3.6 (3.5-5.0) g/dL Globulin 2.9 (1.7-4.1) g/dL Albumin/Globulin Ratio 1.2 (1.0-2.8) Procalcitonin 0.82 H (<0.5) ng/mL Urine RBC (0-5/HPF) Urine WBC (0-5/HPF) Ur Squamous Epith Cells (0-5/HPF) Amorphous Sediment Urine Bacteria (None) Urine Mucus (Negative) Ur Culture Indicated? 12/09/19 12/09/19 Range/Units 15:20 18:57 WBC (4.5-11.0) X10^3/uL RBC (4.5-5.9) X10^6/uL Hgb (13.5-17.5) g/dL Hct (41-53) % MCV (80-100) fL MCH (26-34) PG MCHC (30-36) % RDW (11.6-14.8) % Plt Count (150-400) X10^3/uL Neut % (Auto) (50-75) % Lymph % (Auto) (25-40) % [place] % (Auto) (3-14) % Eos % (Auto) (2-4) % Baso % (Auto) (0-2) % Neut # (Auto) (8562-5488) /uL Lymph # (Auto) (8853-5108) /uL [place] # (Auto) (0-900) /uL Eos # (Auto) (0-450) /uL Baso # (Auto) (0-100) /uL Sodium (137-145) mmol/L Potassium (3.4-5.1) mmol/L Chloride (98-107) mmol/L Carbon Dioxide (22-32) mmol/L BUN (9-20) mg/dL Creatinine (0.66-1.25) mg/dL Estimated GFR (>60) mL/min BUN/Creatinine Ratio (6-22) Glucose (80-110) mg/dL Lactate 1.3 (0.7-2.1) mmol/L Calcium (8.4-10.2) mg/dL Total Bilirubin (0.2-1.3) mg/dL AST (17-59) IU/L ALT (<50) IU/L Alkaline Phosphatase (38-126) U/L Total Protein (6.3-8.2) g/dL Albumin (3.5-5.0) g/dL Globulin (1.7-4.1) g/dL Albumin/Globulin Ratio (1.0-2.8) Procalcitonin (<0.5) ng/mL Urine RBC None seen (0-5/HPF) Urine WBC 1-5/hpf (0-5/HPF) Ur Squamous Epith Cells 0-1 /hpf (0-5/HPF) Amorphous Sediment 1+ Urine Bacteria Few (2-10) H (None) Urine Mucus 1+ H (Negative) Ur Culture Indicated? Specimen cultured Urine Dip Bedside Urine Glucose Negative Bedside Urine Bilirubin - Negative Bedside Urine Ketone +/- 5 Urine Specific [place] 1.020 Bedside Urine Occult Blood - Negative Bedside Urine pH 5.5 Bedside Urine Protein +/- 15 Bedside Urine Urobilinogen - Negative Bedside Urine Nitrite - Negative Bedside Urine Leukocytes +/- 15 Esterase Imaging Data Chest x-ray: Radiologist's Impression: [address] [address] XRay Report Signed Patient: Blake Cuadra [facility]#: [id number] : 6Acct:[id number] Age/Sex: 64 / MDate of Service: 12/09/19 Loc: ED Accession Number: [id number] Procedure: XR chest 2V Ordering Provider: Royce Louis PROCEDURE: XR CHEST 2V INDICATIONS: fever, neutropenic TECHNIQUE: 2 views of the chest were acquired. COMPARISON: [facility], , MR THORACIC SPINE WO CON, 10/21/2019, 17:01. [facility], [place], PET/CT SKULL BASE TO MID THIGH, 10/21/2016, 9:08. [facility], US SOFT TISSUE HEAD AND NECK, 10/21/2019, 17:31. FINDINGS: Surgical changes and devices: None. Lungs and pleura: Lungs are abnormal with a lung mass overlying the right hilar area, previously also identified on MR scanning 10/21/19. This is located posteriorly superimposed on the spine, from the MR scanning and measures approximately 4.2 cm the size on prior MR scanning was approximately 3.3 cm. No pleural effusions or pneumothorax. Mediastinum: Mediastinal contours are normal. Heart size is normal. Bones and chest wall: No suspicious bony abnormalities. Soft tissues appear unremarkable. Spine stabilization surgery has been performed in this patient with documented spinal osseous metastatic disease. IMPRESSION: A source of neutropenic fever is not found. The mass lesion at the posterior right medial lung superimposed on the lower half of the right hilum appears to be mildly enlarged from prior MR scanning in October of this year. Interval spine stabilization surgery crossing the cervical thoracic junction. No pneumonia found. Dictated by: Alon Cabrera M.D. on 12/09/2019 at 15:44 Approved by: Alon Cabrera M.D. on 12/09/2019 at 15:48 ECG Data Attestation: I personally reviewed and interpreted this ECG as follows: Prior ECG tracings: not available for review Interpretation: Normal sinus rhythm rate at 91. Left dominant [place]. DC interval 158, QRS duration 84, QT/QTC 344, 423. No ST elevation or depression. MDM Narrative Medical decision making narrative: This is a 64-year-old gentleman who presents to ED with fever and fatigue after received 1st dose of immunotherapy 4 days ago and last dose of radiation therapy 1 week ago for metastasized cancer in thoracic spine, lung, lymph nodes, left-sided had/scalp and possibly in kidney and liver. Patient is not receiving chemotherapy. Patient has pancytopenia of low WBC, H&H, platelets with normal neutrophil counts/percentage. Patient has mild hyponatremia of 131 with chloride of 95. Chemistry tests were unremarkable otherwise with normal kidney and liver function. Lactate level was normal with mildly elevated procalcitonin of 0.82. Two sets of blood cultures are pending. Covid test is pending. Chest x-ray does not show acute findings indicating pneumonia. Patient is afebrile while in ED with Tmax of 99.5 and hemodynamically stable. POC urine test result with +/- 15 of leuks, positive protein and ketones. Micro urine test result with1-5/hpf of WBC and small amount of urine squamous epithelia cells with few (2-10) urine bacteria and 1+ mucus. Urine culture is pending. During initial encounter noticed tachypnea 36 per minute. Patient denies chest pain, short of breath. Patient's spouse contributes tachypnea when tired or worried. Tachypnea had improved and decreased to 17-22/min. Patient's O2 sat was normal limits from 95-98% in room air. The patient was treated 1 L of normal saline fluids and 2 g of Cefepime IV. Patient medicated with Zofran IV and was able to tolerate fluids without nausea or vomiting. Dr. Yeh was consulted with physical and lab/xray findings. He kindly advised to hydrate patient adequately and advised to use [id number] Tylenol 650 mg q.4-6 hours as needed for fever control. Patient to call tomorrow morning at the clinic and provided Dr. Yeh's cell number. According to Dr. Yeh, the immuno therapy is quite different from chemotherapy and does not usually affect neutrophils. Also, considered for PE with recent thoracic spine surgery and tachypnea but with good o2 sat in room air w/o short of breath, chest pain, syncopal episodes, or tachypnea further tests was deferred. Discussed the above with patient and spouse. Return precautions were discussed with patient and they agree with treatment plan. Advised to continue with sports drink or Pedialyte to correct hypo natremia and hypochloremia. <Ap Elmomariah, DO - Last Filed: 12/10/19 08:10> Lab Data Labs: Lab Results 12/09/19 12/09/19 12/09/19 Range/Units 15:20 15:20 15:20 WBC 3.1 L (4.5-11.0) X10^3/uL RBC 4.72 (4.5-5.9) X10^6/uL Hgb 12.6 L (13.5-17.5) g/dL Hct 37.8 L (41-53) % MCV 80.2 (80-100) fL MCH 26.8 (26-34) PG MCHC 33.4 (30-36) % RDW 16.3 H (11.6-14.8) % Plt Count 99 L (150-400) X10^3/uL Neut % (Auto) 73.7 (50-75) % Lymph % (Auto) 11.4 L (25-40) % [place] % (Auto) 14.0 (3-14) % Eos % (Auto) 0.6 L (2-4) % Baso % (Auto) 0.3 (0-2) % Neut # (Auto) 2300 (9374-2931) /uL Lymph # (Auto) 400 L (0180-9415) /uL [place] # (Auto) 400 (0-900) /uL Eos # (Auto) 0 (0-450) /uL Baso # (Auto) 0 (0-100) /uL Sodium 131 L (137-145) mmol/L Potassium 4.5 (3.4-5.1) mmol/L Chloride 95 L (98-107) mmol/L Carbon Dioxide 29 (22-32) mmol/L BUN 15 (9-20) mg/dL Creatinine 0.93 (0.66-1.25) mg/dL Estimated GFR > 60.0 (>60) mL/min BUN/Creatinine Ratio 16.1 (6-22) Glucose 126 H (80-110) mg/dL Lactate (0.7-2.1) mmol/L Calcium 9.0 (8.4-10.2) mg/dL Total Bilirubin 0.5 (0.2-1.3) mg/dL AST 35 (17-59) IU/L ALT 26 (<50) IU/L Alkaline Phosphatase 84 (38-126) U/L Total Protein 6.5 (6.3-8.2) g/dL Albumin 3.6 (3.5-5.0) g/dL Globulin 2.9 (1.7-4.1) g/dL Albumin/Globulin Ratio 1.2 (1.0-2.8) Procalcitonin 0.82 H (<0.5) ng/mL Urine RBC (0-5/HPF) Urine WBC (0-5/HPF) Ur Squamous Epith Cells (0-5/HPF) Amorphous Sediment Urine Bacteria (None) Urine Mucus (Negative) Ur Culture Indicated? 12/09/19 12/09/19 Range/Units 15:20 18:57 WBC (4.5-11.0) X10^3/uL RBC (4.5-5.9) X10^6/uL Hgb (13.5-17.5) g/dL Hct (41-53) % MCV (80-100) fL MCH (26-34) PG MCHC (30-36) % RDW (11.6-14.8) % Plt Count (150-400) X10^3/uL Neut % (Auto) (50-75) % Lymph % (Auto) (25-40) % [place] % (Auto) (3-14) % Eos % (Auto) (2-4) % Baso % (Auto) (0-2) % Neut # (Auto) (3796-4650) /uL Lymph # (Auto) (2269-8990) /uL [place] # (Auto) (0-900) /uL Eos # (Auto) (0-450) /uL Baso # (Auto) (0-100) /uL Sodium (137-145) mmol/L Potassium (3.4-5.1) mmol/L Chloride (98-107) mmol/L Carbon Dioxide (22-32) mmol/L BUN (9-20) mg/dL Creatinine (0.66-1.25) mg/dL Estimated GFR (>60) mL/min BUN/Creatinine Ratio (6-22) Glucose (80-110) mg/dL Lactate 1.3 (0.7-2.1) mmol/L Calcium (8.4-10.2) mg/dL Total Bilirubin (0.2-1.3) mg/dL AST (17-59) IU/L ALT (<50) IU/L Alkaline Phosphatase (38-126) U/L Total Protein (6.3-8.2) g/dL Albumin (3.5-5.0) g/dL Globulin (1.7-4.1) g/dL Albumin/Globulin Ratio (1.0-2.8) Procalcitonin (<0.5) ng/mL Urine RBC None seen (0-5/HPF) Urine WBC 1-5/hpf (0-5/HPF) Ur Squamous Epith Cells 0-1 /hpf (0-5/HPF) Amorphous Sediment 1+ Urine Bacteria Few (2-10) H (None) Urine Mucus 1+ H (Negative) Ur Culture Indicated? Specimen cultured Urine Dip Bedside Urine Glucose Negative Bedside Urine Bilirubin - Negative Bedside Urine Ketone +/- 5 Urine Specific [place] 1.020 Bedside Urine Occult Blood - Negative Bedside Urine pH 5.5 Bedside Urine Protein +/- 15 Bedside Urine Urobilinogen - Negative Bedside Urine Nitrite - Negative Bedside Urine Leukocytes +/- 15 Esterase Discharge Plan Departure Patient Disposition: Home Clinical Impression: History of cancer, Hyponatremia, Pancytopenia Fever Qualifiers: Fever type: unspecified Qualified Code(s): R50.9 - Fever, unspecified Discharge Date/Time: 12/09/19 19:35 Instructions: DI for Hyponatremia, DI for Fever (Symptom) -- Adult, DI for Pancytopenia Activity Restrictions/Additional Instructions: You have been diagnosed with [generalize weakness, fever with immunotherapy for cancer treatment, hyponatremia if 131. Neutrophil count is normal but your blood count is generally low. Acute findings today. Urine is pending for culture and you will receive a phone call if you require antibiotic medications. Covid swab result will be back in 2-4 days and also you will receive a phone call from us with the result. ]. What to do: *Take your medications as directed. Please use sports drink or Pedialyte to replace low-sodium. Please continue with Tylenol 650 mg every 4-6 hours as needed for pain and fever. * Please call Oncology Clinic tomorrow morning to follow-up and Let them know you were seen in the ED and how you are feeling. I spoke with Dr. Yeh over the phone with the findings. His cell phone number is [phone] if you need to consult him. *Return to ED if you have any new, worsening, or concerning symptoms, such as [the fever not managed with medication, chest pain, breathing difficulty, worsening pain or any acute concerns.]. Prescriptions: No Action CA/CU/VIT A/VIT C/VIT E/ZINC (ICAPS AREDS~) 1 tab PO QDAY Qty: 0 RF: 0 lisinopril 20 mg Tablet 20 mg PO DAILY RF: 0 ocdugnbk-YOP-reuvu-hyaluron ac 1,500 mg PO DAILY RF: 0 carbamazepine 200 MG tablet 200 mg PO TID RF: 0 amlodipine 5 mg tablet 5 mg PO RF: 0 atorvastatin 40 mg tablet 40 mg PO DAILY RF: 0 carbamazepine 200 mg tablet 200 mg PO TID RF: 0 gabapentin 400 mg capsule 400 mg PO DAILY RF: 0 Referrals: Abdifatah May MD [Primary Care Provider] - <Ap Rosas, - Last Filed: 12/10/19 08:10> Cosign ED Attending Cosignature Attestation: Dr Rosas Co-Sign Statement: I was available for consultation during this patient's emergency department visit. This chart is signed by myself for administrative purposes only. I did not have direct contact with this patient during this visit. They were seen independently by the APC.
[2019-12-09 17:00] VITALS: BP 134/72; PULSE 86; RESP 17; O2SAT 96
[2019-12-09] MEDS: ONDANSETRON 4 MG/2 ML INJ IV (17:15)
[2019-12-09 17:30] VITALS: BP 143/73; PULSE 86; RESP 26; O2SAT 96
[2019-12-09 18:54] VITALS: BP 136/75; PULSE 90; RESP 22; O2SAT 94
[2019-12-09 18:58] LABS: RBC Urine None Seen (0-5/HPF)
[2019-12-09 19:09] LABS: Amorphous Sediment Urine 1+; Bacteria Urine Few (2-10); Culture Indicated Urine Specimen Cultured; Mucus Urine 1+ (Negative); Squamous Epithelial Cell Urine 0-1 /HPF (0-5/HPF); WBC Urine 1-5/HPF (0-5/HPF)
[2019-12-11 06:36] LABS: COVID19 Sendout Not Detected (Not Detected)
[2019-12-14 13:10] LABS: Acinetobacter baumannii Not Detected (Not Detect); Candida albicans Not Detected (Not Detect); Candida glabrata Not Detected (Not Detect); Candida krusei Not Detected (Not Detect); Candida parapsilosis Not Detected (Not Detect); Candida tropicalis Not Detected (Not Detect); E. coli Not Detected (Not Detect); Enterobacter cloacae complex Not Detected (Not Detect); Enterobacteriaceae species Not Detected (Not Detect); Enterococcus species Not Detected (Not Detect); Haemophilus influenzae Not Detected (Not Detect); KPC (carbapenem-resist gene) Not Detected (Not Detect); Listeria monocytogenes Not Detected (Not Detect); Methicillin-resistant gene Not Detected (Not Detect); Neisseria meningitidis Not Detected (Not Detect); Proteus species Not Detected (Not Detect); Pseudomonas aeruginosa Not Detected (Not Detect); Serratia marcescens Not Detected (Not Detect); Staphylococcus species Not Detected (Not Detect); Streptococcus agalactiae (Gr B Not Detected (Not Detect); Streptococcus pneumonia Not Detected (Not Detect); Streptococcus pyogenes (Gr A) Not Detected (Not Detect); Streptococcus species Not Detected (Not Detect); Vancomycin-rest genes A/B Not Detected (Not Detect)
== END 2019-12-09 19:35 | disposition home or self-care (01) ==
PROVIDERS: Emergency Provider Nurse Practitioner Family; PCP Internal Medicine
DX: E87.1 Hypo-osmolality and hyponatremia (principal); D61.818 Other pancytopenia; R50.9 Fever, unspecified; C34.90 Malignant neoplasm of unspecified part of unspecified bronchus or lung; Z11.59 Encounter for screening for other viral diseases
CPT/HCPCS: 36415; 71046; 80053; 81003; 81015; 83605; 84145; 85025; 87040; 87086; 87150; 87205; 87635; 93005; 96365; 96375; 99284; J0692; J2405

== ENCOUNTER 2019-12-24 15:13 | Emergency (ER) | payer OTHER, SELFPAY ==
[2019-12-24 15:18] VITALS: BP 142/84; PULSE 103; RESP 22; TEMP 37; O2SAT 96; BMI 27.3
[2019-12-24 16:39] VITALS: BP 156/87; PULSE 90; RESP 18; O2SAT 94
[2019-12-24 16:41] LABS: Add Manual Diff / Slide Review NO; Basophils Absolute Auto 0 /uL (0-100); Basophils Percent Auto 0.5 % (0-2); Eosinophils Absolute Auto 100 /uL (0-450); Eosinophils Percent Auto 1.3 % (2-4); Hematocrit 36.1 % (41-53); Lymphocytes Absolute Auto 600 /uL (1100-4500); Lymphocytes Percent Auto 11.2 % (25-40); Mean Corpuscular HGB Conc 33.2 % (30-36); Mean Corpuscular Hemoglobin 25.8 PG (26-34); Mean Corpuscular Volume 77.7 fL (80-100); Monocytes Absolute Auto 400 /uL (0-900); Monocytes Percent Auto 7.3 % (3-14); Neutrophils Absolute Auto 4100 /uL (1500-7000); Neutrophils Percent Auto 79.7 % (50-75); Platelet Count 109 X10^3/uL (150-400); Red Blood Cell Count 4.64 X10^6/uL (4.5-5.9); White Blood Cell Count 5.2 X10^3/uL (4.5-11.0)
[2019-12-24 16:52] LABS: Lactate (Lactic Acid) 1.3 mmol/L (0.7-2.1)
[2019-12-24 16:53] LABS: Alanine Aminotransferase 18 IU/L (<50); Albumin 3.2 g/dL (3.5-5.0); Albumin Globulin Ratio 1.1 (1.0-2.8); Alkaline Phosphatase 112 U/L (38-126); Aspartate Aminotransferase 25 IU/L (17-59); BUN Creatinine Ratio 14.5 (6-22); Bilirubin Total 0.3 mg/dL (0.2-1.3); Blood Urea Nitrogen 11 mg/dL (9-20); Calcium 8.5 mg/dL (8.4-10.2); Carbon Dioxide 25 mmol/L (22-32); Chloride 99 mmol/L (98-107); Estimated Glomerular Filt Rate > 60.0 mL/min (>60); Globulin 2.8 g/dL (1.7-4.1); Glucose 126 mg/dL (80-110); HEMOLYSIS < 15 (0-50); Potassium 4.6 mmol/L (3.4-5.1); Sodium 132 mmol/L (137-145)
[2019-12-24 17:14] LABS: Procalcitonin 0.42 ng/mL (<0.5)
--- NOTE | 2019-12-24 17:18 | ED.FEVER ---
HPI - Fever General Chief Complaint: Fever Stated Complaint: fever, has cancer, not feeling well Time Seen by Provider: 12/24/19 15:34 Source: patient and old records reviewed Mode of arrival: Family Vehicle Limitations: no limitations History of Present Illness HPI Narrative: Patient is a 64-year-old male with history of melanoma currently being followed at [facility] and being treated with IV immunotherapy. His 1st infusion was 3 weeks ago. Since then he has had fever off and on today it has been 100.5. He has been worked up many times in the past for the same he has had for COVID-19 tests all of which have been negative the last was 2 weeks ago. He states he does have some shortness of breath intermittently but is not any worse today he denies any cough no painful or frequent urination no abdominal pain nausea or vomiting. The been monitoring him very closely at home. He was initially seen by his PCP who referred him here to the ED for further evaluation and workup MD complaint: fever Exacerbating factors: nothing Treatments prior to arrival fever: none Related Data Home Medications Medication Instructions Recorded Confirmed CA/CU/VIT A/VIT C/VIT E/ZINC 1 tab PO QDAY #0 01/24/13 04/25/19 (ICAPS AREDS~) carbamazepine 200 mg PO TID 12/07/18 04/25/19 ggbjtuau-SXS-psgkz-hyaluron ac 1,500 mg PO DAILY 12/07/18 04/25/19 lisinopril 20 mg PO DAILY 12/07/18 04/25/19 amlodipine 5 mg PO 12/09/19 atorvastatin 40 mg PO DAILY 12/09/19 12/09/19 carbamazepine 200 mg PO TID 12/09/19 12/09/19 gabapentin 400 mg PO DAILY 12/09/19 12/09/19 Allergies Allergy/AdvReac Type Severity Reaction Status Date / Time No Known Allergies Allergy Verified 12/24/19 15:22 Review of Systems Review of Systems ROS Unobtainable: All systems reviewed & are unremarkable except as noted in HPI and below Constitutional Constitutional: Reports anorexia, Denies body ache(s), Denies chills, Reports fatigue and Denies fever(s) Eyes Eyes: Denies change in vision, Denies eye discharge, Denies irritation and Denies loss of vision Cardiovascular Cardiovascular: Denies chest pain, Denies irregular heart rhythm, Denies lightheadedness, Denies palpitations and Denies orthopnea Respiratory Respiratory: Denies cough, Denies pain on inspiration and Denies pain with cough Gastrointestinal Gastrointestinal: Denies abdominal pain, Denies change in bowel habits, Denies diarrhea, Denies nausea and Denies vomiting Integumentary/Breasts Skin/Breast: Denies pruritus, Denies erythema, Denies rash and Denies wounds Neurologic Neurologic: Denies loss of vision Endocrine Endocrine: Reports fatigue and Denies palpitations Patient History Medical History Cancer of spine (Acute) Hypertension (Acute) Kidney lesion (Acute) Liver lesion (Acute) Melanoma (Acute) Surgical History H/O Spinal surgery (Acute) Social History household members: spouse Smoking Status: Never smoker Smoking Status: Never smoker Substance Use Type: does not use Exam Initial Vital Signs Initial Vital Signs: Vital Signs Temperature 98.6 F 12/24/19 15:18 Pulse Rate 103 H 12/24/19 15:18 Respiratory Rate 22 12/24/19 15:18 Blood Pressure 142/84 H 12/24/19 15:18 Pulse Oximetry 96 12/24/19 15:18 GENERAL: Alert well-appearing male and in no acute distress. HEENT: Head atraumatic,EOMI, pupils reactive CARDIOVASCULAR: Regular rate and rhythm without murmurs, rubs or gallops. RESPIRATORY: Breath sounds equal bilaterally, no wheezes rales or rhonchi. ABDOMEN: Soft, nontender. Normoactive bowel sounds all 4 quadrants. No guarding or rebound. EXTREMITIES: Normal range of motion, no clubbing or edema. Neurovascularly intact NEUROLOGICAL: Alert and oriented x4.Normal gait and speech. Cranial nerves II through XII grossly intact. SKIN: Warm, dry, no laceration, no petechiae, no rashes or lesions. Course Orders Ordered: ED Orders 12/24/19 16:23 Complete Blood Count AUTO DIFF Stat Comprehensive Metabolic Panel Stat Lactate (Lactic Acid) Stat Procalcitonin Stat 12/24/19 16:32 Blood Culture Stat Discontinued Medications Sodium Chloride (Normal Saline 0.9%) 1,000 mls @ 1,000 mls/hr IV BOLUS ONE Stop: 12/24/19 18:43 Last Infusion: 12/24/19 19:22 Dose: 0 mls/hr Documented by: Admin: 12/24/19 18:25 Dose: 1,000 mls/hr Documented by: JAKOB Consultations Consultation #1: Dr.Martin MAGALLON, agrees with current workup no need for further testing will follow-up with patient in clinic at [facility] Time: 18:02 Vital Signs Vital signs: Vital Signs - 8 hr 12/24/19 15:18 12/24/19 16:39 12/24/19 18:23 Temperature 98.6 F Pulse Rate 103 H 90 98 H Respiratory Rate 22 18 17 Blood Pressure 142/84 H Blood Pressure [Right Arm] 156/87 H 167/83 H Pulse Oximetry 96 94 98 MDM - Fever Lab Data Attestation: I reviewed the patient's lab results. Result diagrams: 12/24/19 16:23 12/24/19 16:23 Labs: Lab Results 12/24/19 12/24/19 12/24/19 Range/Units 16:23 16:23 16:23 WBC 5.2 (4.5-11.0) X10^3/uL RBC 4.64 (4.5-5.9) X10^6/uL Hgb 12.0 L (13.5-17.5) g/dL Hct 36.1 L (41-53) % MCV 77.7 L (80-100) fL MCH 25.8 L (26-34) PG MCHC 33.2 (30-36) % RDW 17.0 H (11.6-14.8) % Plt Count 109 L (150-400) X10^3/uL Neut % (Auto) 79.7 H (50-75) % Lymph % (Auto) 11.2 L (25-40) % [place] % (Auto) 7.3 (3-14) % Eos % (Auto) 1.3 L (2-4) % Baso % (Auto) 0.5 (0-2) % Neut # (Auto) 4100 (0604-0216) /uL Lymph # (Auto) 600 L (2364-2386) /uL [place] # (Auto) 400 (0-900) /uL Eos # (Auto) 100 (0-450) /uL Baso # (Auto) 0 (0-100) /uL Sodium 132 L (137-145) mmol/L Potassium 4.6 (3.4-5.1) mmol/L Chloride 99 (98-107) mmol/L Carbon Dioxide 25 (22-32) mmol/L BUN 11 (9-20) mg/dL Creatinine 0.76 (0.66-1.25) mg/dL Estimated GFR > 60.0 (>60) mL/min BUN/Creatinine Ratio 14.5 (6-22) Glucose 126 H (80-110) mg/dL Lactate (0.7-2.1) mmol/L Calcium 8.5 (8.4-10.2) mg/dL Total Bilirubin 0.3 (0.2-1.3) mg/dL AST 25 (17-59) IU/L ALT 18 (<50) IU/L Alkaline Phosphatase 112 (38-126) U/L Total Protein 6.0 L (6.3-8.2) g/dL Albumin 3.2 L (3.5-5.0) g/dL Globulin 2.8 (1.7-4.1) g/dL Albumin/Globulin Ratio 1.1 (1.0-2.8) Procalcitonin 0.42 (<0.5) ng/mL 12/24/19 Range/Units 16:23 WBC (4.5-11.0) X10^3/uL RBC (4.5-5.9) X10^6/uL Hgb (13.5-17.5) g/dL Hct (41-53) % MCV (80-100) fL MCH (26-34) PG MCHC (30-36) % RDW (11.6-14.8) % Plt Count (150-400) X10^3/uL Neut % (Auto) (50-75) % Lymph % (Auto) (25-40) % [place] % (Auto) (3-14) % Eos % (Auto) (2-4) % Baso % (Auto) (0-2) % Neut # (Auto) (3585-9040) /uL Lymph # (Auto) (0570-0596) /uL [place] # (Auto) (0-900) /uL Eos # (Auto) (0-450) /uL Baso # (Auto) (0-100) /uL Sodium (137-145) mmol/L Potassium (3.4-5.1) mmol/L Chloride (98-107) mmol/L Carbon Dioxide (22-32) mmol/L BUN (9-20) mg/dL Creatinine (0.66-1.25) mg/dL Estimated GFR (>60) mL/min BUN/Creatinine Ratio (6-22) Glucose (80-110) mg/dL Lactate 1.3 (0.7-2.1) mmol/L Calcium (8.4-10.2) mg/dL Total Bilirubin (0.2-1.3) mg/dL AST (17-59) IU/L ALT (<50) IU/L Alkaline Phosphatase (38-126) U/L Total Protein (6.3-8.2) g/dL Albumin (3.5-5.0) g/dL Globulin (1.7-4.1) g/dL Albumin/Globulin Ratio (1.0-2.8) Procalcitonin (<0.5) ng/mL Urine Dip Bedside Urine Glucose Negative Bedside Urine Ketone - Negative Urine Specific [place] 1.015 Bedside Urine Occult Blood - Negative Bedside Urine pH 6.0 Bedside Urine Protein +/- 15 Bedside Urine Urobilinogen +/- 1mg Bedside Urine Nitrite - Negative Bedside Urine Leukocytes - Negative Esterase Imaging Data Chest x-ray: Radiologist's Impression: PROCEDURE: XR CHEST 2V INDICATIONS: fever, neutropenic TECHNIQUE: 2 views of the chest were acquired. COMPARISON: [facility], , MR THORACIC SPINE WO CON, 10/21/2019, 17:01. [place], [place], PET/CT SKULL BASE TO MID THIGH, 10/21/2016, 9:08. [facility], , US SOFT TISSUE HEAD AND NECK, 10/21/2019, 17:31. FINDINGS: Surgical changes and devices: None. Lungs and pleura: Lungs are abnormal with a lung mass overlying the right hilar area, previously also identified on MR scanning 10/21/19. This is located posteriorly superimposed on the spine, from the MR scanning and measures approximately 4.2 cm the size on prior MR scanning was approximately 3.3 cm. No pleural effusions or pneumothorax. Mediastinum: Mediastinal contours are normal. Heart size is normal. Bones and chest wall: No suspicious bony abnormalities. Soft tissues appear unremarkable. Spine stabilization surgery has been performed in this patient with documented spinal osseous metastatic disease. IMPRESSION: A source of neutropenic fever is not found. The mass lesion at the posterior right medial lung superimposed on the lower half of the right hilum appears to be mildly enlarged from prior MR scanning in October of this year. Interval spine stabilization surgery crossing the cervical thoracic junction. No pneumonia found. Dictated by: Alon Cabrera M.D. on 12/09/2019 at 15:44 MDM Narrative Medical decision making narrative: Patient is not septic there is no sign of infection this is a similar to previous workups. [facility] has been updated they will follow him in clinic. No need for a another Brick id test. His procalcitonin has actually improved since his last workup. He is afebrile in the emergency department no sign of neutropenia. Discharge Plan Departure Patient Disposition: Home Clinical Impression: Fever Qualifiers: Fever type: unspecified Qualified Code(s): R50.9 - Fever, unspecified Instructions: DI for Fever (Symptom) -- Adult Activity Restrictions/Additional Instructions: *You have been diagnosed with fever *What to do: At this time it is unknown the cause of your fever however it may be related to your immunotherapy. No infection has been noted at this time *Continue to take medications as directed *Follow up with your primary care provider in 2-3 days *Return to ER if you should have worsening cough, chest pain, persistent fever or any new, worsening or concerning symptoms Prescriptions: No Action CA/CU/VIT A/VIT C/VIT E/ZINC (ICAPS AREDS~) 1 tab PO QDAY Qty: 0 RF: 0 lisinopril 20 mg Tablet 20 mg PO DAILY RF: 0 nmogcmkh-BSV-fctdn-hyaluron ac 1,500 mg PO DAILY RF: 0 carbamazepine 200 MG tablet 200 mg PO TID RF: 0 amlodipine 5 mg tablet 5 mg PO RF: 0 atorvastatin 40 mg tablet 40 mg PO DAILY RF: 0 carbamazepine 200 mg tablet 200 mg PO TID RF: 0 gabapentin 400 mg capsule 400 mg PO DAILY RF: 0 Referrals: Abdifatah Mya MD [Primary Care Provider] -
[2019-12-24 18:23] VITALS: BP 167/83; PULSE 98; RESP 17; O2SAT 98
[2019-12-24] MEDS: SODIUM CHLORIDE 0.9% 1,000 ML 1000 ML IV (18:25)
[2019-12-24 20:33] VITALS: BP 157/92; PULSE 101; RESP 22; TEMP 37.8; O2SAT 91
== END 2019-12-24 20:35 | disposition home or self-care (01) ==
PROVIDERS: Emergency Provider Emergency Medicine; PCP Internal Medicine
DX: R50.9 Fever, unspecified (principal); R06.02 Shortness of breath; C34.90 Malignant neoplasm of unspecified part of unspecified bronchus or lung
CPT/HCPCS: 36415; 80053; 81003; 83605; 84145; 85025; 87040; 96360; 99284

== ENCOUNTER 2019-12-31 14:20 | Emergency (ER) | payer OTHER, SELFPAY ==
[2019-12-31 14:26] VITALS: BP 159/88; PULSE 110; RESP 22; TEMP 36.8; O2SAT 97; BMI 27.3
--- NOTE | 2019-12-31 14:49 | ED.SOB ---
HPI - SOB/Dyspnea General Chief Complaint: Shortness of Breath/Dyspnea Stated Complaint: per phys diff breathing Time Seen by Provider: 12/31/19 14:33 Source: patient Mode of arrival: Wheelchair Limitations: no limitations History of Present Illness HPI Narrative: Patient is a 64-year-old male with history of metastatic melanoma presenting with increasing shortness of breath. He says that he has had body aches chills and shortness of breath and been tested for COVID-19 at least 4 times in all been negative. He is having increasing right hip pain he was given tramadol to help control the pain he took some last night and immediately got more short of breath. He says that he has a difficult time lying flat due to breathing. His breathing is actually better when he stands up but due to his severe hip pain he can not stand. He denies any cough chest pain or heart palpitations. MD Complaint: shortness of breath Exacerbating factors: lying flat Related Data Home Medications Medication Instructions Recorded Confirmed CA/CU/VIT A/VIT C/VIT E/ZINC 1 tab PO QDAY #0 01/24/13 04/25/19 (ICAPS AREDS~) carbamazepine 200 mg PO TID 12/07/18 04/25/19 davjfwwo-PHM-wmyrc-hyaluron ac 1,500 mg PO DAILY 12/07/18 04/25/19 lisinopril 20 mg PO DAILY 12/07/18 04/25/19 amlodipine 5 mg PO 12/09/19 atorvastatin 40 mg PO DAILY 12/09/19 12/09/19 carbamazepine 200 mg PO TID 12/09/19 12/09/19 gabapentin 400 mg PO DAILY 12/09/19 12/09/19 Previous Rx's Medication Instructions Recorded furosemide [Lasix] 20 mg PO QAM #5 tab 12/31/19 oxycodone-acetaminophen [Percocet] 1 tab PO Q6H PRN #14 tab 12/31/19 Allergies Allergy/AdvReac Type Severity Reaction Status Date / Time No Known Allergies Allergy Verified 12/31/19 14:30 Review of Systems Review of Systems ROS Unobtainable: All systems reviewed & are unremarkable except as noted in HPI and below Constitutional Constitutional: Denies chills, Denies fever(s), Denies lethargy and Denies weakness Eyes Eyes: Denies change in vision, Denies eye discharge, Denies irritation and Denies loss of vision Cardiovascular Cardiovascular: Denies chest pain, Denies irregular heart rhythm, Denies lightheadedness, Denies palpitations and Reports orthopnea Respiratory Respiratory: Reports as per HPI Gastrointestinal Gastrointestinal: Denies abdominal pain, Reports bloating, Denies loose stools and Denies nausea Musculoskeletal Musculoskeletal: Reports as per HPI Integumentary/Breasts Skin/Breast: Denies pruritus, Denies erythema, Denies rash and Denies wounds Neurologic Neurologic: Denies loss of vision and Denies weakness Endocrine Endocrine: Denies palpitations Patient History Medical History Cancer of spine (Acute) Hypertension (Acute) Kidney lesion (Acute) Liver lesion (Acute) Melanoma (Acute) Surgical History H/O Spinal surgery (Acute) Social History household members: spouse Smoking Status: Never smoker Smoking Status: Never smoker Substance Use Type: does not use Exam Initial Vital Signs Initial Vital Signs: Vital Signs Temperature 98.3 F 12/31/19 14:26 Pulse Rate 110 H 12/31/19 14:26 Respiratory Rate 22 12/31/19 14:26 Blood Pressure 159/88 H 12/31/19 14:26 Pulse Oximetry 97 12/31/19 14:26 GENERAL: Alert male appears in pain and in no acute distress. HEENT: Head atraumatic,EOMI, pupils reactive, face symmetric, moist mucous membranes CARDIOVASCULAR: Tachycardic regular no murmur RESPIRATORY: Breath sounds equal bilaterally, no wheezes rales or rhonchi. Speaks in full sentences without difficulty ABDOMEN: Soft, mild distension nontender. Normoactive bowel sounds all 4 quadrants. No guarding or rebound. : No CVA tenderness EXTREMITIES: Normal range of motion, no clubbing mild +1 pitting edema greater on right than left. Neurovascularly intact. Tender right hip. NEUROLOGICAL: Alert and oriented x4.Normal gait and speech. Cranial nerves II through XII grossly intact. SKIN: Right neck lymph enlarged with mild erythema tender to touch Course Orders Ordered: ED Orders 12/31/19 15:02 CT abdomen pelvis w con Stat 12/31/19 15:03 Consult to Respiratory Therapy Evaluate & Treat CT angio chest PE protocol Stat EKG-12 Lead Stat 12/31/19 15:24 Complete Blood Count AUTO DIFF Stat Comprehensive Metabolic Panel Stat Magnesium Stat NT-proBNP (BNP-Adult 18+) Stat Partial Thromboplastin Time Stat Prothrombin Time INR Stat Troponin & CK Cardiac Panel Stat Discontinued Medications Furosemide (Lasix) 40 mg IV NOW ONE Stop: 12/31/19 16:20 Last Admin: 12/31/19 16:44 Dose: 40 mg Documented by: YULISSA Hydromorphone HCl (Dilaudid) 1 mg IV NOW ONE Stop: 12/31/19 15:05 Last Admin: 12/31/19 15:21 Dose: 1 mg Documented by: YULISSA Vital Signs Vital signs: Vital Signs - 8 hr 12/31/19 14:26 12/31/19 15:00 12/31/19 17:41 Temperature 98.3 F Pulse Rate 110 H 104 H 101 H Respiratory Rate 22 21 Blood Pressure 159/88 H 173/98 H 153/102 H Pulse Oximetry 97 97 94 MDM - SOB/Dyspnea Lab Data Result diagrams: 12/31/19 15:24 12/31/19 15:24 Labs: Lab Results 12/31/19 12/31/19 12/31/19 Range/Units 15:24 15:24 15:24 WBC 4.5 (4.5-11.0) X10^3/uL RBC 4.91 (4.5-5.9) X10^6/uL Hgb 12.5 L (13.5-17.5) g/dL Hct 37.4 L (41-53) % MCV 76.2 L (80-100) fL MCH 25.5 L (26-34) PG MCHC 33.4 (30-36) % RDW 17.7 H (11.6-14.8) % Plt Count 149 L (150-400) X10^3/uL Neut % (Auto) 78.5 H (50-75) % Lymph % (Auto) 10.7 L (25-40) % Cedar % (Auto) 8.2 (3-14) % Eos % (Auto) 2.2 (2-4) % Baso % (Auto) 0.4 (0-2) % Neut # (Auto) 3500 (2769-3992) /uL Lymph # (Auto) 500 L (4510-2298) /uL Cedar # (Auto) 400 (0-900) /uL Eos # (Auto) 100 (0-450) /uL Baso # (Auto) 0 (0-100) /uL PT 14.6 H (10.1-12.7) SECONDS INR 1.3 (0.9-1.3) APTT 31 (26.4-36.2) SECONDS Sodium (137-145) mmol/L Potassium (3.4-5.1) mmol/L Chloride (98-107) mmol/L Carbon Dioxide (22-32) mmol/L BUN (9-20) mg/dL Creatinine (0.66-1.25) mg/dL Estimated GFR (>60) mL/min BUN/Creatinine Ratio (6-22) Glucose (80-110) mg/dL Calcium (8.4-10.2) mg/dL Magnesium (1.6-2.3) mg/dL Total Bilirubin (0.2-1.3) mg/dL AST (17-59) IU/L ALT (<50) IU/L Alkaline Phosphatase (38-126) U/L Total Creatine Kinase (55-170) U/L CK-MB (CK-2) CK-MB (CK-2) Rel Index Troponin I (0.01-0.034) ng/mL NT-Pro-B Natriuret Pep 1550 H (<125) pg/mL Total Protein (6.3-8.2) g/dL Albumin (3.5-5.0) g/dL Globulin (1.7-4.1) g/dL Albumin/Globulin Ratio (1.0-2.8) 12/31/19 Range/Units 15:24 WBC (4.5-11.0) X10^3/uL RBC (4.5-5.9) X10^6/uL Hgb (13.5-17.5) g/dL Hct (41-53) % MCV (80-100) fL MCH (26-34) PG MCHC (30-36) % RDW (11.6-14.8) % Plt Count (150-400) X10^3/uL Neut % (Auto) (50-75) % Lymph % (Auto) (25-40) % Cedar % (Auto) (3-14) % Eos % (Auto) (2-4) % Baso % (Auto) (0-2) % Neut # (Auto) (2778-0551) /uL Lymph # (Auto) (2068-1185) /uL Cedar # (Auto) (0-900) /uL Eos # (Auto) (0-450) /uL Baso # (Auto) (0-100) /uL PT (10.1-12.7) SECONDS INR (0.9-1.3) APTT (26.4-36.2) SECONDS Sodium 132 L (137-145) mmol/L Potassium 4.8 (3.4-5.1) mmol/L Chloride 101 (98-107) mmol/L Carbon Dioxide 23 (22-32) mmol/L BUN 12 (9-20) mg/dL Creatinine 0.63 L (0.66-1.25) mg/dL Estimated GFR > 60.0 (>60) mL/min BUN/Creatinine Ratio 19.0 (6-22) Glucose 182 H (80-110) mg/dL Calcium 8.7 (8.4-10.2) mg/dL Magnesium 2.1 (1.6-2.3) mg/dL Total Bilirubin 0.4 (0.2-1.3) mg/dL AST 25 (17-59) IU/L ALT 18 (<50) IU/L Alkaline Phosphatase 133 H (38-126) U/L Total Creatine Kinase 30 L (55-170) U/L CK-MB (CK-2) TNP CK-MB (CK-2) Rel Index TNP Troponin I < 0.012 (0.01-0.034) ng/mL NT-Pro-B Natriuret Pep (<125) pg/mL Total Protein 5.8 L (6.3-8.2) g/dL Albumin 3.2 L (3.5-5.0) g/dL Globulin 2.6 (1.7-4.1) g/dL Albumin/Globulin Ratio 1.2 (1.0-2.8) Urine Dip Bedside Urine Glucose Negative Bedside Urine Bilirubin - Negative Bedside Urine Ketone - Negative Urine Specific [place] 1.005 Bedside Urine Occult Blood - Negative Bedside Urine pH 6.5 Bedside Urine Protein - Negative Bedside Urine Urobilinogen - Negative Bedside Urine Nitrite - Negative Bedside Urine Leukocytes - Negative Esterase Imaging Data CT scan - chest: Radiologist's Impression: PROCEDURE: CT ANGIO CHEST PE PROTOCOL INDICATIONS: sob with metastatic melanoma TECHNIQUE: After the administration of intravenous contrast, 2 mm thick sections acquired from the pulmonary apices to the posterior costophrenic angles. 3-dimensional maximum intensity projection (MIP) coronal and sagittal reformats were then acquired through the thorax. For radiation dose reduction, the following was used: automated exposure control, adjustment of mA and/or kV according to patient size. COMPARISON: [place], [place], PET/CT SKULL BASE TO MID THIGH, 10/21/2016, 9:08. FINDINGS: Image quality: Excellent. Pulmonary arteries: Pulmonary arteries are normal in size, and demonstrate no intraluminal filling defects to suggest central pulmonary embolism. Lungs and pleura: Moderate-sized bilateral pleural fluid collections. 3.3 x 4.3 cm heterogeneously enhancing mass in the superior segment of the right lower lobe concerning for metastatic disease versus primary bronchogenic carcinoma. Central and peripheral airways are patent. Mediastinum: Heart size is normal, with small pericardial effusion. Atherosclerotic calcifications noted in the left coronary vasculature. Right hilar lymphadenopathy noted with largest node measuring 1.7 cm in short axis. Mediastinal lymphadenopathy noted with largest node localizing to the the subcarinal mediastinal measuring 1.9 cm in short axis. 1.1 cm right supraclavicular fossa lymph node noted. Moderate-sized bilateral pleural effusions. Compressive atelectasis noted adjacent to the pleural effusions. Suture line noted in the right lung base. Thoracic aorta is normal in caliber and enhancement. Esophagus is normal in caliber, without hiatal hernia. Bones and chest wall: Cervicothoracic spine fixation hardware. Spine degenerative disc disease and facet arthropathy. Lesion involving the humeri bilaterally ribs bilaterally, the T11 vertebral body T12 vertebral body compatible with metastatic disease. Ribs and thoracic spine appear intact throughout. Thyroid gland is within normal limits where visualized. No axillary or supraclavicular adenopathy. Abdomen: Small amount of ascites noted in the visualized abdomen. Visualized upper abdominal solid organs appear normal in the early arterial phase of enhancement. IMPRESSION: 1. No pulmonary embolus. 2. 3.3 x 4.3 cm right lower lobe mass which could represent metastatic disease or primary bronchogenic carcinoma. 3. Multiple bilateral lung nodules ranging in size from 3-12 mm highly suspicious for metastatic disease. 4. Right hilar, mediastinal and right supraclavicular fossa lymphadenopathy likely representing metastatic disease. 5. Osseous metastatic disease. 6. Moderate-sized bilateral pleural effusions. 7. Partially visualized abdominal ascites. Dictated by: Chanel Bardales MD, PhD on 12/31/2019 at 15:50 CT scan - abdomen/pelvis: Radiologist's Impression: PROCEDURE: CT ABDOMEN PELVIS W CON INDICATIONS: Distended abdomen with severe right hip pain metastatic neena TECHNIQUE: After the administration of intravenous contrast, 5 mm thick sections acquired from the diaphragm to the symphysis. 5 mm coronal and sagittal reformats were acquired. For radiation dose reduction, the following was used: automated exposure control, adjustment of mA and/or kV according to patient size. COMPARISON: [facility], CT, CT ANGIO CHEST PE PROTOCOL, 12/31/2019, 15:26. FINDINGS: Image quality: Excellent. ABDOMEN: Lung bases: Moderate bilateral pleural effusions with associated compressive atelectasis. Heart size is normal. Solid organs: Liver is normal in size and enhancement. Multiple hepatic hypodensities are incompletely characterized. These may represent hepatic cysts, hemangiomas, versus metastatic disease. Gallbladder contains a few punctate densities which may represent cholelithiasis. Otherwise, no CT evidence for acute cholecystitis. Biliary system is non dilated. Pancreas enhances normally. Spleen is normal in enhancement. Spleen is enlarged measuring 15.3 cm in maximum dimension. No adrenal nodules. Kidneys demonstrate normal size and enhancement, without hydronephrosis. There is a 1.1 cm exophytic hypodensity off the posterior wall of the right kidney. Peritoneum and bowel: Bowel loops demonstrate normal wall thickness and caliber. No free air. Scattered ascites in the abdomen and pelvis without organized fluid collection. There are a few hyperdense nodular soft tissue lesions identified over the antimesenteric/omental side of the colon within the midabdomen. Scientific Programmer Analyst image is noted on axial image 47, series 6. It measures approximately 1.6 x 1.3 cm in transverse dimension. Findings are suspicious for omental metastatic disease. Nodes and vessels: No retroperitoneal or mesenteric adenopathy by size criteria. However, there are numerous scattered mesenteric lymph nodes seen in the abdomen. Aorta and inferior vena cava are normal in size. Miscellaneous: No ventral hernias. PELVIS: Genitourinary: Bladder wall thickness is normal. Miscellaneous: There is a fat containing right inguinal hernia without acute inflammation. There is a moderate-sized left inguinal hernia containing a short segment of distal descending colon and proximal sigmoid colon. No evidence for bowel obstruction proximally. No visualized pelvic lymphadenopathy. Bones: No acute vertebral body compression fractures. Multilevel spondylitic changes throughout the imaged spine. There are numerous lytic lesions identified throughout the visualized lower thoracic and lumbar spine. There is also an expansile destructive/lytic intraosseous lesion of the posterior aspect of the right iliac bone with cortical erosion and destruction of the posterior/superficial cortex. No definite pathologic fracture visualized. There is also a small destructive lytic lesion involving the posterior, medial wall of the left acetabular posterior column. Other suspicious lytic lesions are also noted in the left iliac bone. A few subchondral cystic lesions in the bilateral femoral heads are favored to represent degenerative subchondral cysts. IMPRESSION: 1. Multiple osseous metastatic lesions seen throughout the imaged spine and bilateral pelvis with the largest lesion seen in the posterior right iliac bone with associated overlying cortical destruction. Findings may explain patient's symptoms. 2. Findings suspicious for early peritoneal carcinomatosis with hyperdense nodular lesions identified in the omentum. 3. Bowel containing left inguinal hernia containing a segment of distal descending colon and proximal sigmoid colon without evidence for obstruction or incarceration. 4. Multiple hepatic hypodensities with differential including hepatic cyst, hepatic hemangiomas, versus metastatic lesions. 5. Splenomegaly. 6. 11 mm exophytic posterior right renal hypodensity is incompletely characterized. Consider dedicated nonemergent renal ultrasound. 7. Moderate bilateral pleural effusions and scattered ascites. Dictated by: Romie Olivares M.D. on 12/31/2019 at 16:21 Approved by: Romie Olivares M.D. on 12/31/2019 at 16:44 ECG Data Attestation: I personally reviewed and interpreted this ECG as follows: Prior ECG tracings: available for review Interpretation: Sinus tachycardia rate 101 p.r. interval 150 QRS [address] elevation depression or T-wave inversion MDM Narrative Medical decision making narrative: Patient is found to have bilateral pleural effusions elevated BNP of 1500, and bony metastasis to the right iliac crest. Discussed with the patient staying in the hospital for echocardiogram and further evaluation although he is not hypoxic and is responding well to Lasix. Patient actually would prefer to go home with pain medication and Lasix. At this time I think it is reasonable seeing as though he is not hypoxic and responding to the Lasix. I do recommend that he have an outpatient echocardiogram. He is given copies of his CTs that were done today. He has an appointment with the oncologist and [facility] in 2 days on . I discussed all findings with the patient and , Education has been performed regarding treatment plan, diagnosis, warning signs and symptoms and all concerns have been addressed. Verbally agree with and understood all of the above. Discharge Plan Departure Patient Disposition: Home Clinical Impression: Pleural effusion Discharge Date/Time: 12/31/19 17:42 Instructions: Pleural Effusion Activity Restrictions/Additional Instructions: *You have been diagnosed with bilateral pleural effusion *What to do: You do have fluid on her lungs likely from they cancer. However I do recommend that you have an echocardiogram to evaluate the function of your heart. This can be done as an outpatient. *Continue to take medications as directed--> sent to [facility] in [place] Lasix 20 mg once a day for the next 5 days Percocet 7.5 mg 1 tablet every 4 hours or 2 tablets every 6 hours only if needed for pain *Follow up with your primary care provider in 2-3 days *Return to ER if you should have increasing shortness of breath, worsening pain or any new, worsening or concerning symptoms CONTROLLED SUBSTANCE DISCHARGE (Narcotoic/benzodiazepine/Flexeril/Phenergan) 1. You have been prescribed narcotic medications, it does have acetaminophen/Tylenol/paracetamol in it so do not take extra Tylenol or Tylenol containing products TRAMADOL DOES NOT CONTAIN TYLENOL 2. Please understand that we cannot provide further refills of narcotics, benzodiazepines or controlled substances through the ED and her pain management will need to be through your provider. 3. While on these medications you cannot drive or operate heavy machinery. 4. You cannot sign legal documents or perform any duties such as this. 5. As long as you're taking opiate pain medications he should also be taking a stool softener such as Colace, Dulcolax, MiraLAX or prune juice, to help avoid constipation. Prescriptions: New furosemide [Lasix] 20 mg tablet 20 mg PO QAM Qty: 5 RF: 0 oxycodone-acetaminophen [Percocet] 7.5-325 mg tablet 1 tab PO Q6H PRN (Reason: pain) Qty: 14 RF: 0 No Action CA/CU/VIT A/VIT C/VIT E/ZINC (ICAPS AREDS~) 1 tab PO QDAY Qty: 0 RF: 0 lisinopril 20 mg Tablet 20 mg PO DAILY RF: 0 hbyibied-IIP-qqxfu-hyaluron ac 1,500 mg PO DAILY RF: 0 carbamazepine 200 MG tablet 200 mg PO TID RF: 0 amlodipine 5 mg tablet 5 mg PO RF: 0 atorvastatin 40 mg tablet 40 mg PO DAILY RF: 0 carbamazepine 200 mg tablet 200 mg PO TID RF: 0 gabapentin 400 mg capsule 400 mg PO DAILY RF: 0 Referrals: Abdifatah May MD [Primary Care Provider] -
[2019-12-31 15:00] VITALS: BP 173/98; PULSE 104; O2SAT 97
--- NOTE | 2019-12-31 15:02 | DI.CT.S_ITS ---
PROCEDURE: CT ABDOMEN PELVIS W CON INDICATIONS: Distended abdomen with severe right hip pain metastatic neena TECHNIQUE: After the administration of intravenous contrast, 5 mm thick sections acquired from the diaphragm to the symphysis. 5 mm coronal and sagittal reformats were acquired. For radiation dose reduction, the following was used: automated exposure control, adjustment of mA and/or kV according to patient size. COMPARISON: [facility], CT, CT ANGIO CHEST PE PROTOCOL, 12/31/2019, 15:26. FINDINGS: Image quality: Excellent. ABDOMEN: Lung bases: Moderate bilateral pleural effusions with associated compressive atelectasis. Heart size is normal. Solid organs: Liver is normal in size and enhancement. Multiple hepatic hypodensities are incompletely characterized. These may represent hepatic cysts, hemangiomas, versus metastatic disease. Gallbladder contains a few punctate densities which may represent cholelithiasis. Otherwise, no CT evidence for acute cholecystitis. Biliary system is non dilated. Pancreas enhances normally. Spleen is normal in enhancement. Spleen is enlarged measuring 15.3 cm in maximum dimension. No adrenal nodules. Kidneys demonstrate normal size and enhancement, without hydronephrosis. There is a 1.1 cm exophytic hypodensity off the posterior wall of the right kidney. Peritoneum and bowel: Bowel loops demonstrate normal wall thickness and caliber. No free air. Scattered ascites in the abdomen and pelvis without organized fluid collection. There are a few hyperdense nodular soft tissue lesions identified over the antimesenteric/omental side of the colon within the midabdomen. Guitar Instructor image is noted on axial image 47, series 6. It measures approximately 1.6 x 1.3 cm in transverse dimension. Findings are suspicious for omental metastatic disease. Nodes and vessels: No retroperitoneal or mesenteric adenopathy by size criteria. However, there are numerous scattered mesenteric lymph nodes seen in the abdomen. Aorta and inferior vena cava are normal in size. Miscellaneous: No ventral hernias. PELVIS: Genitourinary: Bladder wall thickness is normal. Miscellaneous: There is a fat containing right inguinal hernia without acute inflammation. There is a moderate-sized left inguinal hernia containing a short segment of distal descending colon and proximal sigmoid colon. No evidence for bowel obstruction proximally. No visualized pelvic lymphadenopathy. Bones: No acute vertebral body compression fractures. Multilevel spondylitic changes throughout the imaged spine. There are numerous lytic lesions identified throughout the visualized lower thoracic and lumbar spine. There is also an expansile destructive/lytic intraosseous lesion of the posterior aspect of the right iliac bone with cortical erosion and destruction of the posterior/superficial cortex. No definite pathologic fracture visualized. There is also a small destructive lytic lesion involving the posterior, medial wall of the left acetabular posterior column. Other suspicious lytic lesions are also noted in the left iliac bone. A few subchondral cystic lesions in the bilateral femoral heads are favored to represent degenerative subchondral cysts. IMPRESSION: 1. Multiple osseous metastatic lesions seen throughout the imaged spine and bilateral pelvis with the largest lesion seen in the posterior right iliac bone with associated overlying cortical destruction. Findings may explain patient's symptoms. 2. Findings suspicious for early peritoneal carcinomatosis with hyperdense nodular lesions identified in the omentum. 3. Bowel containing left inguinal hernia containing a segment of distal descending colon and proximal sigmoid colon without evidence for obstruction or incarceration. 4. Multiple hepatic hypodensities with differential including hepatic cyst, hepatic hemangiomas, versus metastatic lesions. 5. Splenomegaly. 6. 11 mm exophytic posterior right renal hypodensity is incompletely characterized. Consider dedicated nonemergent renal ultrasound. 7. Moderate bilateral pleural effusions and scattered ascites. Dictated by: Romie Olivares M.D. on 12/31/2019 at 16:21 Approved by: Romie Olivares M.D. on 12/31/2019 at 16:44
--- NOTE | 2019-12-31 15:03 | DI.CT.S_ITS ---
PROCEDURE: CT ANGIO CHEST PE PROTOCOL INDICATIONS: sob with metastatic melanoma TECHNIQUE: After the administration of intravenous contrast, 2 mm thick sections acquired from the pulmonary apices to the posterior costophrenic angles. 3-dimensional maximum intensity projection (MIP) coronal and sagittal reformats were then acquired through the thorax. For radiation dose reduction, the following was used: automated exposure control, adjustment of mA and/or kV according to patient size. COMPARISON: [place], [place], PET/CT SKULL BASE TO MID THIGH, 10/21/2016, 9:08. FINDINGS: Image quality: Excellent. Pulmonary arteries: Pulmonary arteries are normal in size, and demonstrate no intraluminal filling defects to suggest central pulmonary embolism. Lungs and pleura: Moderate-sized bilateral pleural fluid collections. 3.3 x 4.3 cm heterogeneously enhancing mass in the superior segment of the right lower lobe concerning for metastatic disease versus primary bronchogenic carcinoma. Central and peripheral airways are patent. Mediastinum: Heart size is normal, with small pericardial effusion. Atherosclerotic calcifications noted in the left coronary vasculature. Right hilar lymphadenopathy noted with largest node measuring 1.7 cm in short axis. Mediastinal lymphadenopathy noted with largest node localizing to the the subcarinal mediastinal measuring 1.9 cm in short axis. 1.1 cm right supraclavicular fossa lymph node noted. Moderate-sized bilateral pleural effusions. Compressive atelectasis noted adjacent to the pleural effusions. Suture line noted in the right lung base. Thoracic aorta is normal in caliber and enhancement. Esophagus is normal in caliber, without hiatal hernia. Bones and chest wall: Cervicothoracic spine fixation hardware. Spine degenerative disc disease and facet arthropathy. Lesion involving the humeri bilaterally ribs bilaterally, the T11 vertebral body T12 vertebral body compatible with metastatic disease. Ribs and thoracic spine appear intact throughout. Thyroid gland is within normal limits where visualized. No axillary or supraclavicular adenopathy. Abdomen: Small amount of ascites noted in the visualized abdomen. Visualized upper abdominal solid organs appear normal in the early arterial phase of enhancement. IMPRESSION: 1. No pulmonary embolus. 2. 3.3 x 4.3 cm right lower lobe mass which could represent metastatic disease or primary bronchogenic carcinoma. 3. Multiple bilateral lung nodules ranging in size from 3-12 mm highly suspicious for metastatic disease. 4. Right hilar, mediastinal and right supraclavicular fossa lymphadenopathy likely representing metastatic disease. 5. Osseous metastatic disease. 6. Moderate-sized bilateral pleural effusions. 7. Partially visualized abdominal ascites. Dictated by: Chanel Bardales MD, PhD on 12/31/2019 at 15:50 Approved by: Chanel Bardales MD, PhD on 12/31/2019 at 16:04
[2019-12-31] MEDS: HYDROMORPHONE 1 MG INJ IV (15:21)
[2019-12-31 15:36] LABS: Add Manual Diff / Slide Review NO; Basophils Absolute Auto 0 /uL (0-100); Basophils Percent Auto 0.4 % (0-2); Eosinophils Absolute Auto 100 /uL (0-450); Eosinophils Percent Auto 2.2 % (2-4); Hematocrit 37.4 % (41-53); Hemoglobin 12.5 g/dL (13.5-17.5); Lymphocytes Absolute Auto 500 /uL (1100-4500); Lymphocytes Percent Auto 10.7 % (25-40); Mean Corpuscular HGB Conc 33.4 % (30-36); Mean Corpuscular Hemoglobin 25.5 PG (26-34); Mean Corpuscular Volume 76.2 fL (80-100); Monocytes Absolute Auto 400 /uL (0-900); Monocytes Percent Auto 8.2 % (3-14); Neutrophils Absolute Auto 3500 /uL (1500-7000); Neutrophils Percent Auto 78.5 % (50-75); Platelet Count 149 X10^3/uL (150-400); Red Blood Cell Count 4.91 X10^6/uL (4.5-5.9); Red Cell Distribution Width 17.7 % (11.6-14.8); White Blood Cell Count 4.5 X10^3/uL (4.5-11.0)
[2019-12-31 15:37] LABS: INR 1.3 (0.9-1.3); Prothrombin Time 14.6 SECONDS (10.1-12.7)
--- NOTE | 2019-12-31 15:37 | PC.NURSE ---
Pt reports SOB at baseline due to mets to lungs. States after taking tramadol last evening, he woke up more short of breath than usual. Reports now back at baseline breathing. Right Hip pain 4-02/09.
[2019-12-31 15:40] LABS: PTT Partial Thromboplastin Tim 31 SECONDS (26.4-36.2)
[2019-12-31 15:49] LABS: Alanine Aminotransferase 18 IU/L (<50); Albumin 3.2 g/dL (3.5-5.0); Albumin Globulin Ratio 1.2 (1.0-2.8); Alkaline Phosphatase 133 U/L (38-126); Aspartate Aminotransferase 25 IU/L (17-59); Bilirubin Total 0.4 mg/dL (0.2-1.3); Blood Urea Nitrogen 12 mg/dL (9-20); Calcium 8.7 mg/dL (8.4-10.2); Carbon Dioxide 23 mmol/L (22-32); Chloride 101 mmol/L (98-107); Creatine Kinase 30 U/L (55-170); Estimated Glomerular Filt Rate > 60.0 mL/min (>60); Globulin 2.6 g/dL (1.7-4.1); Glucose 182 mg/dL (80-110); HEMOLYSIS < 15 (0-50); Magnesium 2.1 mg/dL (1.6-2.3); Potassium 4.8 mmol/L (3.4-5.1); Sodium 132 mmol/L (137-145); Total Protein 5.8 g/dL (6.3-8.2)
[2019-12-31 15:57] LABS: NT-proBNP (BNP-Adult 18+) 1550 pg/mL (<125)
[2019-12-31 16:00] LABS: Troponin I < 0.012 ng/mL (0.01-0.034)
[2019-12-31] MEDS: FUROSEMIDE 40 MG/4 ML VIAL IV (16:44)
[2019-12-31 17:41] VITALS: BP 153/102; PULSE 101; RESP 21; O2SAT 94
== END 2019-12-31 17:42 | disposition home or self-care (01) ==
PROVIDERS: Emergency Provider Emergency Medicine; PCP Internal Medicine
DX: J90 Pleural effusion, not elsewhere classified (principal); M25.551 Pain in right hip; C34.90 Malignant neoplasm of unspecified part of unspecified bronchus or lung; R06.00 Dyspnea, unspecified
CPT/HCPCS: 36415; 71275; 74177; 80053; 81003; 82550; 83735; 83880; 84484; 85025; 85610; 85730; 93005; 96374; 96375; 99284; J1170; J1940; Q9967

== ENCOUNTER → 2020-02-04 13:53 | Outpatient (CLI) | payer OTHER, SELFPAY ==
--- NOTE | 2020-02-04 | DI.RAD.S_ITS ---
PROCEDURE: XR CHEST 2V INDICATIONS: SECONDARY MALIGNANT NEOPLASM OF UNSPECIFIED SITE TECHNIQUE: 2 views of the chest were acquired. COMPARISON: [facility], CT, CT ANGIO CHEST PE PROTOCOL, 12/31/2019, 15:26. [facility], CR, XR CHEST 2V, 12/09/2019, 14:23. FINDINGS: Surgical changes and devices: Posterior spinal fixation hardware in vertebral body strut graft. Lungs and pleura: No new or acute consolidation. Redemonstrated right perihilar mass. No pleural effusions or pneumothorax. Mediastinum: Mediastinal contours are normal. Heart size is normal. Bones and chest wall: No suspicious bony abnormalities. Soft tissues appear unremarkable. IMPRESSION: Overall, unchanged appearance. No acute disease. Redemonstration of right perihilar mass, better characterized on comparison CT from 12/31/19. Dictated by: Kory Correia M.D. on 02/04/2020 at 15:22 Approved by: Kory Correia M.D. on 02/04/2020 at 15:25
[2020-02-04 15:44] LABS: BUN Creatinine Ratio 26.2 (6-22); Blood Urea Nitrogen 16 mg/dL (9-20); Calcium 10.4 mg/dL (8.4-10.2); Carbon Dioxide 21 mmol/L (22-32); Chloride 96 mmol/L (98-107); Estimated Glomerular Filt Rate > 60.0 mL/min (>60); Glucose 123 mg/dL (80-110); HEMOLYSIS 18 (0-50); Sodium 129 mmol/L (137-145)
== END ==
PROVIDERS: PCP Internal Medicine; Referring Provider Internal Medicine Medical Oncology; Visit Provider Internal Medicine Medical Oncology
DX: C79.9 Secondary malignant neoplasm of unspecified site (principal); C43.9 Malignant melanoma of skin, unspecified
CPT/HCPCS: 36415; 71046; 80048

== ENCOUNTER 2020-02-05 19:31 | Emergency (ER) | payer OTHER, SELFPAY ==
[2020-02-05] VITALS (8 sets, daily range): BP systolic 129–172; BP diastolic 78–94; PULSE 95–110; RESP 16; TEMP 36.6; O2SAT 97–99; BMI 27.4
--- NOTE | 2020-02-05 19:45 | ED.GENADULT ---
HPI - General Adult General Chief complaint: Shortness of Breath/Dyspnea Stated complaint: breathing issues Time Seen by Provider: 02/05/20 19:45 History of Present Illness HPI narrative: 65-year-old gentleman with widely metastatic melanoma including carcinomatosis and malignant pleural effusions presents with increasing dyspnea. Was seen December 30 with PE study done that demonstrated though widely metastatic lesions moderate pleural effusions moderate ascites and no pulmonary embolism. He is followed by oncology at the [facility] and is currently in the middle of immunotherapy treatment. He has had 3 treatments and a 4th 1 is scheduled for next week followed by repeat CT scans. He presents today with subjective dyspnea, enough that it is severely disrupting his activity of daily living despite the fact that oxygen saturations are in the 98% range. This has been going on for a number of weeks and insurance has denied home oxygen because of the elevated saturations despite the subjective dyspnea. Labs were done yesterday that show reassuring H&H at 12.5 and 37.4 suggesting that severe anemia is not responsible. Chest x-ray was also done he has very minimal by basilar effusions with no pneumothorax. At this point he is still hopeful that the immunotherapy is going to cure his disease and he and his family have not discussed hospice (hospice care would pay for oxygen therapy for comfort) Related Data Home Medications Medication Instructions Recorded Confirmed CA/CU/VIT A/VIT C/VIT E/ZINC 1 tab PO QDAY #0 01/24/13 04/25/19 (ICAPS AREDS~) carbamazepine 200 mg PO TID 12/07/18 04/25/19 [id number]-JHW-wkvga-hyaluron ac 1,500 mg PO DAILY 12/07/18 04/25/19 lisinopril 20 mg PO DAILY 12/07/18 04/25/19 amlodipine 5 mg PO 12/09/19 atorvastatin 40 mg PO DAILY 12/09/19 12/09/19 carbamazepine 200 mg PO TID 12/09/19 12/09/19 gabapentin 400 mg PO DAILY 12/09/19 12/09/19 Previous Rx's Medication Instructions Recorded furosemide [Lasix] 20 mg PO QAM #5 tab 12/31/19 oxycodone-acetaminophen [Percocet] 1 tab PO Q6H PRN #14 tab 12/31/19 Allergies Allergy/AdvReac Type Severity Reaction Status Date / Time No Known Allergies Allergy Verified 12/31/19 14:30 Review of Systems Review of Systems Narrative: And increasing weakness, weight loss, increasing dyspnea, nausea, moderate constipation, no Cruz no wheezing no dysuria. Increasing fatigued with any a.m. large either a lymph node a more actual metastatic lesion in the left and neck/periapical space Patient History Medical History Cancer of spine (Acute) Hypertension (Acute) Kidney lesion (Acute) Liver lesion (Acute) Melanoma (Acute) Surgical History H/O Spinal surgery (Acute) Social History household members: spouse Smoking Status: Never smoker Smoking Status: Never smoker Substance Use Type: does not use Exam Narrative Exam Narrative: General: Globally weak, with and subjective dyspnea with saturations in the 97% on room air range. HEENT: Moist mucous membranes, normal sclera with reactive pupils, Neck: No JVD, supple, in 3 x 3 cm mass in the right anterior neck/wale-apical space Respiratory: Lungs are clear to auscultation, no wheezing no rales no rhonchi. Full and symmetrical air movement Cardiac: Regular rate and rhythm no murmurs no bruits Abdomen: Soft nontender good bowel tones, no flank pain Skin: Warm and dry, no rashes Neurologic: Grossly neurologically intact, global weakness, with no obvious asymmetries or abnormalities Extremities: No trauma, well perfused Psych: Cooperative, appropriate insight and affect Bedside cardiac ultrasound: Approximately half a cm of fluid all the way around the heart with a hyperdynamic heart. Inferior vena cava is appropriate(not overly distended and not immediately compressible). In conjunction with the absence of jugular venous distension cardiac tamponade is not felt to be likely etiology for his current dyspnea Initial Vital Signs Initial Vital Signs: Vital Signs Temperature 98 F 02/05/20 19:43 Pulse Rate 110 H 02/05/20 19:43 Respiratory Rate 16 02/05/20 19:43 Blood Pressure 172/94 H 02/05/20 19:43 Pulse Oximetry 97 02/05/20 19:43 Course Orders Ordered: ED Orders 02/05/20 19:51 Blood Culture Stat 02/05/20 20:00 Complete Blood Count AUTO DIFF Stat Comprehensive Metabolic Panel Stat Magnesium Stat NT-proBNP (BNP-Adult 18+) Stat Troponin I Stat 02/05/20 20:37 EKG-12 Lead Stat Sodium Chloride (Normal Saline 0.9%) 1,000 mls @ 1,000 mls/hr IV BOLUS ONE Stop: 02/05/20 21:52 Last Admin: 02/05/20 21:02 Dose: 1,000 mls/hr [facility] Vital Signs Vital signs: Vital Signs - 8 hr 02/05/20 19:43 02/05/20 19:49 02/05/20 19:53 Temperature 98 F Pulse Rate 110 H 106 H 105 H Respiratory Rate 16 Blood Pressure 172/94 H Pulse Oximetry 97 98 98 02/05/20 19:54 Temperature Pulse Rate Respiratory Rate Blood Pressure 136/85 Pulse Oximetry Medical Decision Making Lab Data Lab results reviewed: Yes I reviewed the patient's lab results. Result diagrams: 02/05/20 20:00 02/05/20 20:00 Labs: Lab Results 02/05/20 02/05/20 Range/Units 20:00 20:00 WBC 8.3 (4.5-11.0) X10^3/uL RBC 5.43 (4.5-5.9) X10^6/uL Hgb 12.3 L (13.5-17.5) g/dL Hct 38.3 L (41-53) % MCV 70.5 L (80-100) fL MCH 22.6 L (26-34) PG MCHC 32.0 (30-36) % RDW 19.4 H (11.6-14.8) % Plt Count 115 L (150-400) X10^3/uL Neut % (Auto) 85.5 H (50-75) % Lymph % (Auto) 7.2 L (25-40) % [place] % (Auto) 6.3 (3-14) % Eos % (Auto) 0.4 L (2-4) % Baso % (Auto) 0.6 (0-2) % Neut # (Auto) 7100 H (4262-1901) /uL Lymph # (Auto) 600 L (1500-8622) /uL [place] # (Auto) 500 (0-900) /uL Eos # (Auto) 0 (0-450) /uL Baso # (Auto) 100 (0-100) /uL Sodium 130 L (137-145) mmol/L Potassium 4.8 (3.4-5.1) mmol/L Chloride 94 L (98-107) mmol/L Carbon Dioxide 27 (22-32) mmol/L BUN 16 (9-20) mg/dL Creatinine 0.60 L (0.66-1.25) mg/dL Estimated GFR > 60.0 (>60) mL/min BUN/Creatinine Ratio 26.7 H (6-22) Glucose 117 H (80-110) mg/dL Calcium 10.5 H (8.4-10.2) mg/dL Magnesium 2.0 (1.6-2.3) mg/dL Total Bilirubin 0.6 (0.2-1.3) mg/dL AST 25 (17-59) IU/L ALT 15 (<50) IU/L Alkaline Phosphatase 215 H (38-126) U/L Troponin I < 0.012 (0.01-0.034) ng/mL NT-Pro-B Natriuret Pep 957 H (<125) pg/mL Total Protein 6.6 (6.3-8.2) g/dL Albumin 3.6 (3.5-5.0) g/dL Globulin 3.0 (1.7-4.1) g/dL Albumin/Globulin Ratio 1.2 (1.0-2.8) Imaging Data Chest x-ray: Radiologist's Impression: PROCEDURE: XR CHEST 2V INDICATIONS: SECONDARY MALIGNANT NEOPLASM OF UNSPECIFIED SITE TECHNIQUE: 2 views of the chest were acquired. COMPARISON: [facility], CT, CT ANGIO CHEST PE PROTOCOL, 12/31/2019, 15:26. [facility], CR, XR CHEST 2V, 12/09/2019, 14:23. FINDINGS: Surgical changes and devices: Posterior spinal fixation hardware in vertebral body strut graft. Lungs and pleura: No new or acute consolidation. Redemonstrated right perihilar mass. No pleural effusions or pneumothorax. Mediastinum: Mediastinal contours are normal. Heart size is normal. Bones and chest wall: No suspicious bony abnormalities. Soft tissues appear unremarkable. IMPRESSION: Overall, unchanged appearance. No acute disease. Redemonstration of right perihilar mass, better characterized on comparison CT from 12/31/19. Dictated by: Kory Correia M.D. on 02/04/2020 at 15:22 ECG Data Attestation: I personally reviewed and interpreted this ECG as follows: Interpretation: Sinus rhythm at a rate of 102 Left axis deviation Q-waves anteriorly, old anteroseptal infarct No acute ischemia MDM Narrative Medical decision making narrative: Widely metastatic melanoma with subjective dyspnea and no objective findings to explain the dyspnea. Specifically no signs of sepsis, acute coronary syndrome, cardiac tamponade, pulmonary embolism, restrictive lung concerns due to abdominal ascites, congestive heart failure, pleural effusion or significant anemia. He does feel better with oxygen in place. Am as his insurance will not cover this they did have questions about simply buying an oxygen concentrator. We discussed how to go about doing that inappropriate concentrator in the setting to be obtained from [employer] for personal use outside of medical insurance. He was mildly dehydrated with a slightly hyperdynamic heart on ultrasound. Given a L of fluid felt somewhat better. He is discharged home. He has follow-up with his oncology team scheduled in the near future Discharge Plan Departure Patient Disposition: Home Clinical Impression: Dyspnea Qualifiers: Dyspnea type: unspecified Qualified Code(s): R06.00 - Dyspnea, unspecified Instructions: DI for Shortness of Breath Activity Restrictions/Additional Instructions: Thank you for coming in today In looking at all of the life-threatening explanations that could be present that would cause shortness of breath, I did not find any of them. Specifically, there is no severe anemia, infection, blood clots in your lungs, fluid around her heart, fluid collecting around her lungs, restrictive problem so your lungs can not expand or congestive heart failure. While that is wonderful, it still does not fix the problem that you do feel short of breath. Insurance typically does not cover oxygen for subjective dyspnea. You do not have any underlying severe lung disease that would suggest you should not use oxygen if it makes you feel better. We did briefly talk about buying an oxygen concentrator directly rather than involving insurance. If you choose to do this using anywhere between 0.5-2 L of oxygen during the day when your feeling short of breath would be very appropriate. Good luck with the rest of your cancer treatment. Prescriptions: No Action CA/CU/VIT A/VIT C/VIT E/ZINC (ICAPS AREDS~) 1 tab PO QDAY Qty: 0 RF: 0 lisinopril 20 mg Tablet 20 mg PO DAILY RF: 0 lflwkdts-EXR-mqyxl-hyaluron ac 1,500 mg PO DAILY RF: 0 carbamazepine 200 MG tablet 200 mg PO TID RF: 0 amlodipine 5 mg tablet 5 mg PO RF: 0 atorvastatin 40 mg tablet 40 mg PO DAILY RF: 0 carbamazepine 200 mg tablet 200 mg PO TID RF: 0 gabapentin 400 mg capsule 400 mg PO DAILY RF: 0 furosemide [Lasix] 20 mg tablet 20 mg PO QAM Qty: 5 RF: 0 oxycodone-acetaminophen [Percocet] 7.5-325 mg tablet 1 tab PO Q6H PRN (Reason: pain) Qty: 14 RF: 0 Referrals: Abdifatah May MD [Primary Care Provider] -
[2020-02-05 20:24] LABS: Add Manual Diff / Slide Review NO; Basophils Absolute Auto 100 /uL (0-100); Basophils Percent Auto 0.6 % (0-2); Eosinophils Absolute Auto 0 /uL (0-450); Eosinophils Percent Auto 0.4 % (2-4); Hematocrit 38.3 % (41-53); Hemoglobin 12.3 g/dL (13.5-17.5); Lymphocytes Absolute Auto 600 /uL (1100-4500); Lymphocytes Percent Auto 7.2 % (25-40); Mean Corpuscular Hemoglobin 22.6 PG (26-34); Mean Corpuscular Volume 70.5 fL (80-100); Monocytes Absolute Auto 500 /uL (0-900); Monocytes Percent Auto 6.3 % (3-14); Neutrophils Absolute Auto 7100 /uL (1500-7000); Neutrophils Percent Auto 85.5 % (50-75); Platelet Count 115 X10^3/uL (150-400); Red Blood Cell Count 5.43 X10^6/uL (4.5-5.9); Red Cell Distribution Width 19.4 % (11.6-14.8); White Blood Cell Count 8.3 X10^3/uL (4.5-11.0)
[2020-02-05 20:35] LABS: Alanine Aminotransferase 15 IU/L (<50); Albumin 3.6 g/dL (3.5-5.0); Albumin Globulin Ratio 1.2 (1.0-2.8); Alkaline Phosphatase 215 U/L (38-126); Aspartate Aminotransferase 25 IU/L (17-59); BUN Creatinine Ratio 26.7 (6-22); Bilirubin Total 0.6 mg/dL (0.2-1.3); Blood Urea Nitrogen 16 mg/dL (9-20); Calcium 10.5 mg/dL (8.4-10.2); Carbon Dioxide 27 mmol/L (22-32); Chloride 94 mmol/L (98-107); Estimated Glomerular Filt Rate > 60.0 mL/min (>60); Glucose 117 mg/dL (80-110); HEMOLYSIS < 15 (0-50); Potassium 4.8 mmol/L (3.4-5.1); Sodium 130 mmol/L (137-145); Total Protein 6.6 g/dL (6.3-8.2)
[2020-02-05 20:47] LABS: NT-proBNP (BNP-Adult 18+) 957 pg/mL (<125); Troponin I < 0.012 ng/mL (0.01-0.034)
--- NOTE | 2020-02-05 20:51 | PC.NURSE ---
PT states metastatic melanoma to everywhere with SOB for 3-4 days. O2 sat 98% on RA. Also states fluid on the lungs and takes lasix daily. Pt is taking shallow breaths and speaking in short sentences. Family at bedside. Pt placed on 1L O2 NC for comfort and states he feels better when he wears O2 and states they tell me I don't need it but maybe its a placebo.
[2020-02-05] MEDS: SODIUM CHLORIDE 0.9% 1,000 ML 1000 ML IV (21:02)
== END 2020-02-05 21:42 | disposition home or self-care (01) ==
PROVIDERS: Emergency Provider Emergency Medicine; PCP Internal Medicine; Referring Provider Nurse Practitioner Family
DX: R06.00 Dyspnea, unspecified (principal); C34.90 Malignant neoplasm of unspecified part of unspecified bronchus or lung
CPT/HCPCS: 36415; 80053; 83735; 83880; 84484; 85025; 87040; 93005; 96360; 99284